=== PATIENT | female | born 1980 | race Caucasian/White ===

== ENCOUNTER 2022-06-12 12:06 | Inpatient (IN) | payer OTHER, SELFPAY ==
[2022-06-12] VITALS (7 sets, daily range): BP systolic 174–220; BP diastolic 107–133; PULSE 65–78; RESP 16–18; TEMP 36.4–36.6; O2SAT 96–100
--- NOTE | ~2022-06-12 | CT_ITS ---
EXAMINATION: CT abdomen pelvis w con DATE: 06/12/2022 13:23 INDICATION: Lower abdominal pain. Nausea. Constipation. TECHNIQUE: Computed tomography (CT) of the abdomen and pelvis was performed with 100 cc Omnipaque 350 intravenous contrast. The dose-length product was 397.59 mGy-cm. Automated exposure control and iter ative reconstruction technique were employed. COMPARISON: CT dated 05/04/2004. FINDINGS: There is a nonobstructing mass in the descending colon with dilation of the colon proximal to this. There is thickening of the distal transverse and proximal descending colon, suspicious for c olitis. Heart size is normal. Adrenal glands are normal. Kidneys are normal. No significant pleural o r pericardial effusion. Lung bases are unremarkable. There are multiple hypoenhancing masses of the liver involving both lobes, consistent with a metastat ic disease. The spleen, pancreas, adrenal glands and kidneys are unremarkable. No significant vascula r abnormality. No lymphadenopathy. There is mild inferior endplate compression deformity of T11, like ly chronic. No focal lytic or blastic lesions. There is an IUD in the uterus. No free air or free flu id. No abnormal pelvic masses or fluid collections. IMPRESSION: 1. Abnormal concentric thickening of the descending colon, suspicious for adenocarcinoma. The colon p roximal to this location is dilated containing fluid with segmental thickening of the distal transver se and proximal descending colon, suspicious for superimposed colitis. 2: Multiple hypoenhancing masses of the liver, largest measuring 7.2 x 5.1 cm and the left hepatic l obe, consistent with metastatic disease. Reviewed, dictated and finalized at location A. IMPRESSION: 1. Abnormal concentric thickening of the descending colon, suspicious for adeno carcinoma. The colon proximal to this location is dilated containing fluid with segmental thickening of the distal transverse and proximal descending colon, s uspicious for superimposed colitis. 2: Multiple hypoenhancing masses of the liver, largest measuring 7.2 x 5.1 cm and the left hepatic lobe, consistent with metastatic disease.
--- NOTE | ~2022-06-12 | XR_ITS ---
EXAMINATION: XR abdomen obstructive series DATE: 06/13/2022 07:52 INDICATION: Colon mass. Bowel obstruction. TECHNIQUE: Upright and supine views of the abdomen on 3 radiographs were obtained. COMPARISON: CT abdomen and pelvis 06/13/2022 FINDINGS: The splenic flexure of the colon is dilated with fold thickening. The small bowel is normal in caliber. There is an intrauterine device in expected position. No free intraperitoneal gas. IMPRESSION: 1. Dilated splenic flexure of the colon with fold thickening, consistent with colonic obstruction and colitis. Reviewed, dictated and finalized at location A. IMPRESSION: 1. Dilated splenic flexure of the colon with fold thickening, consistent with c olonic obstruction and colitis.
--- NOTE | ~2022-06-12 | US_ITS ---
EXAMINATION: US biopsy liver DATE: 06/14/2022 11:58 INDICATION: Liver mass. TECHNIQUE: The procedure including the risks, benefits, and alternatives was discussed with the patie nt. Risks discussed included bleeding and infection. The patient understood the risks and agreed to p roceed. The skin overlying the left hepatic lobe was prepped and draped in usual sterile fashion. An esthetic was administered with 1% lidocaine subcutaneously. An 18 gauge core biopsy needle was then used to obtain 3 core biopsy specimens under continuous sonographic guidance. The entry site was daivd dari and dressed. There were no immediate complications. FINDINGS: Ultrasound images demonstrate the needle in a 6 cm hyperechoic mass in left hepatic lobe. IMPRESSION: 1. Ultrasound-guided core needle biopsy of a mass in left hepatic lobe. Reviewed, dictated and finalized at location A.
--- NOTE | ~2022-06-12 | XR_ITS ---
EXAMINATION: XR chest port-a-cath/central INDICATION: Port-A-Cath insertion TECHNIQUE: Portable AP chest at 1801 hours COMPARISON: 10/17/2015 FINDINGS: A left internal jugular Port-A-Cath ends with its tip in the distal superior vena cava. No pleural effusion or pneumothorax. The cardiomediastinal silhouette is normal. IMPRESSION: 1. Left internal jugular Port-A-Cath ending with its tip in the distal superior vena cava. Reviewed, dictated and finalized at location A.
--- NOTE | ~2022-06-12 | XR_ITS ---
EXAMINATION: XR abdomen obstructive series DATE: 06/14/2022 07:54 INDICATION: Colon mass with obstruction. TECHNIQUE: Upright and supine views of the abdomen on 3 radiographs were obtained. COMPARISON: CT abdomen and pelvis 06/12/2022 FINDINGS: The transverse and descending colon are distended with fold thickening. The small bowel is normal in caliber. There is an intrauterine device in expected position. No free intraperitoneal gas. IMPRESSION: 1. Distended transverse and descending colon with fold thickening, consistent with colon obstruction and colitis. Reviewed, dictated and finalized at location A. IMPRESSION: 1. Distended transverse and descending colon with fold thickening, consistent w ith colon obstruction and colitis.
--- NOTE | ~2022-06-12 | XR_ITS ---
EXAMINATION: XR fl guide central line place INDICATION: Port-A-Cath insertion TECHNIQUE: A single intraoperative fluoroscopic image is submitted for review. Total fluoroscopic emmett e is 87 seconds. COMPARISON: None available FINDINGS: Fluoroscopic image demonstrates a left internal jugular Port-A-Cath with its tip coursing b eyond the left portion of the radiograph. Please refer to procedure note for full details. IMPRESSION: 1. Left internal jugular Port-A-Cath insertion. Please refer to procedure note for full details. Reviewed, dictated and finalized at location A.
--- NOTE | 2022-06-12 12:27 | ED.ABDPAIN ---
HPI - Abdominal Pain General Chief Complaint: Abdominal Pain Stated Complaint: ABD pain Time Seen by Provider: 06/12/22 12:11 Source: RN notes reviewed History of Present Illness HPI narrative: Patient presents emergency room from home for abdominal pain. Patient states she been having diffuse abdominal pain that began 6 days ago. States the pain is diffuse but worse in the lower abdomen described as cramping in nature. The pain does not radiate. States it is associate with nausea as well as constipation she denies any fevers or chills vomiting or any other symptoms states she has taken a stool softener with minimal relief Related Data Home Medications Medication Instructions Recorded Confirmed duloxetine 60 mg capsule,delayed 60 mg PO DAILY 07/12/19 06/30/20 release Allergies Allergy/AdvReac Type Severity Reaction Status Date / Time No Known Allergies Allergy Verified 06/12/22 12:49 Review of Systems Review of Systems: Gen.: Denies fevers or chills ENT: Denies congestion Respiratory: Denies shortness of breath or cough CV: Denies chest pain or palpitations GI: See HPI denies burning, urgency, frequency or hematuria Musculoskeletal: Denies back pain or muscle pain Neuro: Denies numbness, tingling, weakness or focal weakness Skin: Denies rash Except as documented, all other systems reviewed and negative [facility] Past Medical History Medical History Chondromalacia patellae, right knee Psoriatic arthritis Tear of lateral meniscus of right knee Family History Family History Grandparent Family history of osteoporosis Family history of lung cancer Father Family history of cardiovascular disease Other Diabetes mellitus Social History Social History Smoking status: Current every day smoker Alcohol intake: current Exam Narrative: APPEARANCE: No acute distress, nontoxic, resting in bed HEENT: Normocephalic, atraumatic, OMM RESPIRATORY: No respiratory distress, clear to auscultation bilaterally with no rhonchi wheezing or rales CARDIOVASCULAR: RRR s murmur ABDOMINAL: Soft nondistended diffusely tender to palpation no rebound or guarding MUSCULOSKELETAl: Moves all extremities. No clubbing, cyanosis or edema. NEURO: Awake and alert. Following commands, speech normal, no focal deficits SKIN:: Warm, dry. Normal Color PSYCHIATRIC: Normal affect/mood Course Course Emergency Course: Updated patient on results of CT scan with concerns of colon cancer with mets to the liver all questions answered. Discussed need for admission in agreement Called and discussed with LENARD Forbes for Dr. Nayak agrees with admission at this time Called and discussed with Dr Mcdonnell agrees with consult Called discussed with Dr. Griffin presentation work-up at this time he had asked to see patient possibly excepted to [facility] or [facility] or colorectal is at I called and discussed with [facility] is not taking any transfers at this time except for trauma is also called [facility] the patient is on the wait list to the emergency but no beds will be available for least 3 to 4 days I discussed this and updated Dr. Griffin is in agreement for the patient to stay at [facility] at this time and will Discussed with patient and family results of workup and diagnosis. Discussed need for admission. Patient and family understand and agree to current treatment plan Vital Signs Vital signs: Vital Signs Temperature 97.8 F 06/12/22 12:15 Pulse Rate 75 06/12/22 12:15 Respiratory Rate 16 06/12/22 12:15 Blood Pressure 186/133 H 06/12/22 12:15 Pulse Oximetry 99 06/12/22 12:15 Temperature 97.8 F 06/12/22 12:15 Pulse Rate 72 06/12/22 15:00 Respiratory Rate 18 06/12/22 15:00 Blood Pressure 220/133 H 06/12/22 15:00 Pulse Oximetry 98
[2022-06-12 12:28] LABS: Basophils Absolute Auto 0.1 K/mm3 (0.0-0.1); Basophils Percent Auto 0.9 % (0.2-1.2); Eosinophils Absolute Auto 0.4 K/mm3 (0-0.3); Hematocrit 44.6 % (37.0-47.0); Hemoglobin 14.4 g/dL (12.0-15.0); Immature Granulocyte Absolute 0.03 K/mm3 (0.00-0.031); Immature Granulocyte Percent A 0.3 % (0-0.5); Lymphocytes Absolute Auto 1.96 K/mm3 (0.9-3.2); Lymphocytes Percent Auto 18.3 % (18.3-44.2); Mean Corpuscular HGB Conc 32.3 g/dl (32-36); Mean Corpuscular Hemoglobin 29.3 pg (26-34); Mean Corpuscular Volume 90.7 fl (80-100); Mean Platelet Volume 8.7 fl (7.4-10.4); Monocytes Absolute Auto 0.8 K/mm3 (0.1-0.6); Monocytes Percent Auto 7.4 % (2.6-8.5); Neutrophils Absolute Auto 7.4 K/mm3 (1.3-6.7); Neutrophils Percent Auto 69.1 % (45.5-73.1); Platelet Count Result 313 k/mm3 (150-375); Red Blood Count 4.92 M/mm3 (4.2-5.4); Red Cell Distribution Width 12.4 % (11.5-14.5); White Blood Count 10.7 K/mm3 (4.5-10.0)
[2022-06-12] MEDS: ONDANSETRON INJ 4 MG/2 ML VIAL IV PUSH (12:39)
[2022-06-12] MEDS: KETOROLAC 30 MG/ML VIAL (*BKC) IV PUSH (12:39)
[2022-06-12] MEDS: SODIUM CHLORIDE 0.9% IV 1,000 ML 999 ML IV CONT (12:40)
[2022-06-12 12:45] LABS: Alanine Aminotransferase 29 U/L (6-35); Albumin Level 4.5 g/dL (3.5-5.1); Alkaline Phosphatase 132 U/L (38-126); Anion Gap 8 mmol/L (8-16); Aspartate Amino Transferase 50 U/L (14-36); Bilirubin,Total 0.6 mg/dL (0.2-1.3); Blood Urea Nitrogen 13 mg/dL (7-17); Calcium 9.1 mg/dL (8.4-10.2); Carbon Dioxide 33 mmol/L (22-30); Chloride 98 mmol/L (98-107); Estimated CRCL calculation 90 ml/min; Estimated Glomerular Filt Rate > 60; Glucose 116 mg/dL (65-110); Lipase 50 U/L (23-300); Potassium 4.2 mmol/L (3.4-5.0); Sodium 139 mmol/L (137-145)
[2022-06-12 13:11] LABS: Add Urine Microscopic? YES; Amorphous Sediment Urine Few; Appearance Urine Cloudy (Clear); Bacteria Urine Trace /hpf; Bilirubin Urine Negative (Negative); Blood Urine Negative (Negative); Color Urine Yellow (Yellow); Glucose Urine UA Negative (Negative); Ketones Urine Negative (Negative); Leukocyte Esterase Ur Negative LEU/UL (Negative); Mucus Urine Rare /lpf; Nitrate Urine Negative (Negative); Protein Urine Negative (Negative); RBC Urine 0-2 /hpf (0-2); Specific Grav Ur 1.016 (1.001-1.035); Squamous Epithelial Cell Urine Moderate /hpf (Few); Urobilinogen Urine Negative mg/dL (<2.0); WBC Urine 0-3 /hpf
[2022-06-12 15:20] LABS: SARS-CoV-2 RNA PCR Negative
--- NOTE | 2022-06-12 15:50 | ADMGEN ---
This patient, Bayron White, was admitted to 2 Medical Room 242-. Patient/family oriented to hospital policies and general routines including ID bracelet, bed and alarms, visiting hours, pain management, procedures, bathroom and other care routines, personal items, smoking policy, room service/diet, and visiting hours. Information on how to activate the Rapid Response Team has been discussed. Patient/Family are encouraged to report perceived risks to care and to ask questions if they do not understand what they are told or what they should do.
[2022-06-12] MEDS: SODIUM CHLORIDE 0.9% IV 1,000 ML 125 ML IV CONT (16:07)
[2022-06-12] MEDS: MORPHINE SULFATE (*CRX) 2 MG/ML INJ IV PUSH (18:34)
[2022-06-12] MEDS: amLODIPine BESYLATE 5 MG TABLET PO (22:04)
--- NOTE | 2022-06-12 22:30 | PM.IMHP ---
H&P: HPI History of Present Illness Date/Time: 06/12/22 22:30 Chief Complaint: Abdominal pain. Narrative: This is a very pleasant 41-year-old female with history of hypertension (no longer on antihypertensives) and psoriatic arthritis who presented to the emergency department via private vehicle from home for evaluation of abdominal pain. One morning early last week she awoke to a sharp and stabbing pain in her left shoulder and the following day she had similar pain in the upper abdomen. She initially thought that she was constipated and she took a Dulcolax and had a pretty decent sized bowel movement however the following day her abdomen was bloated and distended and she was having diffuse cramping discomfort that she attributed to gas pain. She took another Dulcolax without much benefit. She has also had nausea on almost a daily basis for the past 1 month however she attributes that to increasing stress and anxiety as she is currently going through a divorce. She has lost about 10 pounds in the last month as well. She came in today because she continues to have pretty consistent cramping pain throughout the lower abdomen. CT of the abdomen and pelvis showed abnormal thickening of the descending colon suspicious for adenocarcinoma with possible superimposed colitis, and multiple hypoenhancing masses the liver which are concerning for metastatic disease. Her paternal grandmother had colon cancer in her early 40s with no other known relatives with colon cancer. She has never had a colonoscopy. She has not noticed any dark stools or bright red blood in her stools. She has not had vomiting or diarrhea. No fever, chills, or sweats. Review of Systems Review of Systems: Twelve systems were reviewed. 10 pound weight loss recently as detailed above. She was previously on antihypertensives but has not taken them for many years. Blood pressures have been quite uncontrolled today. No chest pain, pleuritic pain, or shortness of breath. She denies syncope and presyncope. Except as documented, all other systems were reviewed and are negative. [facility] Past Medical History Medical History (Updated 06/12/22 @ 23:44 by Leidy Cordova PA-C) Chondromalacia patellae, right knee Hypertension Psoriatic arthritis Tear of lateral meniscus of right knee Surgical History Surgical History (Updated 06/12/22 @ 23:38 by Leidy Cordova PA-C) History of 2 sections History of adenoidectomy History of ovarian cystectomy Family History Family History (Updated 06/12/22 @ 23:39 by Leidy Cordova PA-C) Grandparent Colon cancer Father Heart disease Mother Cirrhosis Hypertension Other Diabetes mellitus Social History Social History (Updated 06/12/22 @ 23:41 by Leidy Cordova PA-C) Social History: The patient lives in [place]. She is currently going through divorce but she and her soon to be ex- are on good terms. Together they have a 7-year-old daughter and a 14-year-old son. 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 She smoked a pack of cigarettes per day for 15 years and quit about 7 years ago. She drinks 2 to 3 mixed drinks several days a week on average though over the last month she has been drinking wine almost each night. She smokes marijuana recreationally. She designates her spouse, Chintan White, or her mother Morgan Jimenez as her surrogate decision makers. Code status: Full code Meds Home Medications and Allergies Home Medications Medication Instructions Recorded Confirmed Type duloxetine 60 mg capsule,delayed 60 mg PO DAILY 07/12/19 06/12/22 History release Allergies Allergy/AdvReac Type Severity Reaction Status Date / Time No Known Allergies Allergy Verified 06/12/22 16:11 Vital Signs Vital Signs - 24 hr 06/12/22 12:15 06/12/22 12:50 06/12/22 15:00 Temperature 97.8 F Pulse Rate 75 69 72 Respiratory Rate 16 18 18 Blood Pressure 186/133 H 184/113 H 220/133 H
[2022-06-13] MEDS: ALPRAZolam (*CRX) 0.25 MG TABLET PO ×2 (00:14→19:17)
[2022-06-13 03:46] VITALS: BP 166/110; PULSE 75; RESP 20; TEMP 36; O2SAT 100
[2022-06-13 05:14] LABS: Basophils Absolute Auto 0.1 K/mm3 (0.0-0.1); Basophils Percent Auto 0.7 % (0.2-1.2); Eosinophils Absolute Auto 0.5 K/mm3 (0-0.3); Eosinophils Percent Auto 5.4 % (0-4.4); Hematocrit 41.5 % (37.0-47.0); Hemoglobin 13.1 g/dL (12.0-15.0); Immature Granulocyte Absolute 0.02 K/mm3 (0.00-0.031); Immature Granulocyte Percent A 0.2 % (0-0.5); Lymphocytes Absolute Auto 2.22 K/mm3 (0.9-3.2); Lymphocytes Percent Auto 25.9 % (18.3-44.2); Mean Corpuscular HGB Conc 31.6 g/dl (32-36); Mean Corpuscular Hemoglobin 28.6 pg (26-34); Mean Corpuscular Volume 90.6 fl (80-100); Monocytes Absolute Auto 0.6 K/mm3 (0.1-0.6); Monocytes Percent Auto 7.2 % (2.6-8.5); Neutrophils Absolute Auto 5.2 K/mm3 (1.3-6.7); Neutrophils Percent Auto 60.6 % (45.5-73.1); Platelet Count Result 273 k/mm3 (150-375); Red Blood Count 4.58 M/mm3 (4.2-5.4); Red Cell Distribution Width 12.4 % (11.5-14.5); White Blood Count 8.6 K/mm3 (4.5-10.0)
[2022-06-13 05:27] LABS: Alanine Aminotransferase 25 U/L (6-35); Albumin Level 3.9 g/dL (3.5-5.1); Alkaline Phosphatase 109 U/L (38-126); Anion Gap 7 mmol/L (8-16); Aspartate Amino Transferase 42 U/L (14-36); Bilirubin,Total 0.6 mg/dL (0.2-1.3); Blood Urea Nitrogen 8 mg/dL (7-17); Calcium 8.4 mg/dL (8.4-10.2); Carbon Dioxide 32 mmol/L (22-30); Chloride 103 mmol/L (98-107); Estimated CRCL calculation 91 ml/min; Estimated Glomerular Filt Rate > 60; Glucose 94 mg/dL (65-110); Potassium 3.9 mmol/L (3.4-5.0); Sodium 142 mmol/L (137-145)
--- NOTE | 2022-06-13 07:44 | WPDGICN ---
Assessment and Plan Assessment and plan (1) Abnormal CT scan: Code(s): R93.89 - Abnormal findings on diagnostic imaging of other specified body structures Status: Acute Assessment and Plan: Abnormal CT scan suggests mass of the left colon and possible liver metastases. Patient clinically has relatively benign abdomen this morning but history suspicious for partial bowel obstruction. Plan is for preparation attempted colonoscopy tomorrow after preparation today. CEA level will be obtained. Further recommendations after endoscopy. Surgery has been consulted further insight as well and eventual surgery. GI Consult Note Consult date/time: 06/13/22 07:44 Reason for consult: Abdominal pain, abnormal CT scan. HPI: Bayron White is a 41 year old female I am asked to see because of abnormal CT scan. Patient reports that she has had a recent tendency towards constipation. After exercising she developed left shoulder pain 1 week ago. Throughout the week this eventually developed into abdominal discomfort. She had abdominal discomfort and difficulty with bowel movements. No response with laxative. She presented to the emergency room yesterday where a CT scan suggested a left colon mass. Liver lesions were also described. Patient gives a family history of colon cancer in a grandparent. She denies any bleeding. Her weight has not changed dramatically recently. Past medical history is significant for psoriasis Review of Systems Review of Systems: Review of systems noncontributory. [facility] Past Medical History Medical History (Updated 06/13/22 @ 07:46 by Severino Mcdonnell MD) Chondromalacia patellae, right knee Hypertension Psoriatic arthritis Tear of lateral meniscus of right knee Surgical History Surgical History (Updated 06/12/22 @ 23:38 by Leidy Cordova PA-C) History of 2 sections History of adenoidectomy History of ovarian cystectomy Family History Family History (Updated 06/12/22 @ 23:39 by Leidy Cordova PA-C) Grandparent Colon cancer Father Heart disease Mother Cirrhosis Hypertension Other Diabetes mellitus Social History Social History (Updated 06/12/22 @ 23:41 by Leidy Cordova PA-C) Social History: The patient lives in [place]. She is currently going through divorce but she and her soon to be ex- are on good terms. Together they have a 7-year-old daughter and a 14-year-old son. 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 She smoked a pack of cigarettes per day for 15 years and quit about 7 years ago. She drinks 2 to 3 mixed drinks several days a week on average though over the last month she has been drinking wine almost each night. She smokes marijuana recreationally. She designates her spouse, Chintan White, or her mother Morgan Jimenez as her surrogate decision makers. Code status: Full code Meds Home Medications and Allergies Home Medications Medication Instructions Recorded Confirmed Type duloxetine 60 mg capsule,delayed 60 mg PO DAILY 07/12/19 06/12/22 History release Allergies Allergy/AdvReac Type Severity Reaction Status Date / Time No Known Allergies Allergy Verified 06/12/22 16:11 Vital Signs Vital Signs - 24 hr 06/12/22 12:15 06/12/22 12:50 06/12/22 15:00 Temperature 97.8 F Pulse Rate 75 69 72 Respiratory Rate 16 18 18 Blood Pressure 186/133 H 184/113 H 220/133 H Pulse Oximetry 99 96 98 Oxygen Delivery 06/12/22 15:40 06/12/22 15:48 06/12/22 18:14 Temperature Pulse Rate 78 Respiratory Rate 18 Blood Pressure 182/114 H 184/124 H Pulse Oximetry 99 Oxygen Delivery Room Air 06/12/22 18:19 06/12/22 19:47 06/13/22 03:46 Temperature 97.7 F 97.5 F L 96.8 F L Pulse Rate 65 70 75 Respiratory Rate 18 18 20 Blood Pressure 174/107 H 198/109 H 166/110 H Pulse Oximetry 99 100 100 Oxygen Delivery Exam Narrative: physical exam reveals patient to be alert. Vi
[2022-06-13] MEDS: LOSARTAN POTASSIUM 25 MG TABLET PO ×2 (09:02→14:19)
[2022-06-13] MEDS: DULoxetine HCL 60 MG CAPSULE.DR PO (09:02)
[2022-06-13] MEDS: ACETAMINOPHEN 325 MG TABLET 650 MG PO (09:07)
[2022-06-13] MEDS: hydrALAZINE HCL 20 MG/ML VIAL 10 MG IV PUSH (09:08)
--- NOTE | 2022-06-13 10:30 | PM.IMPN ---
Progress Note: A&P Assessment and Plan (1) Mass of colon: Code(s): K63.89 - Other specified diseases of intestine Status: Acute Assessment and Plan: CT scan shows concentric thickening of the descending colon suspicious for adenocarcinoma. Proximal colon dislocation is dilated with fluid suspicious for superimposed colitis Drs. Griffin, Kecia, and Rodney have been consulted for their opinion. Pain medications Could need a biopsy Colonoscopy probably for tomorrow (2) Liver masses: Code(s): R16.0 - Hepatomegaly, not elsewhere classified Status: Acute Assessment and Plan: Multiple masses noted in the liver with the largest measuring 7.2 x 5.1 centimeters concerning for metastatic disease. Consider biopsy Oncology has been consulted Pain medications on board (3) Hypertension: Code(s): I10 - Essential (primary) hypertension Status: Acute Assessment and Plan: Blood pressures have been uncontrolled since arrival to the ER, initially attributed to abdominal pain and anxiety BP continues to be elevated at 166/110 Continue losartan 25mg PO daily Continue to trend BP Adjust therapy as indicated (4) Colitis: Code(s): K52.9 - Noninfective gastroenteritis and colitis, unspecified Status: Acute Assessment and Plan: CT indicated possible colitis WBC slightly elevated at 10.7, however, trending down 8.6 Hold antibiotics for now Trend labs Adjust therapy as indicated Time Spent With Patient Time with patient: Greater than 35 minutes Subjective Date/time seen: 06/13/22 1030 Interval history: 06/13/22 103 Patient stated that she is feeling okay she is very emotional and she has been crying a lot. She is also complaining of cramping specially in the lower abdomen. She denies any chest pain, shortness a breath, vomiting, diarrhea. She did state that she is having constipation and nausea. I talked to her further about her illness. I explained to her that the CT did find some masses which is suspicious for cancer however it is not confirmed until she has a full workup. She is going to go through a bowel prep in go through a colonoscopy tomorrow. 06/12/22? 22:30 This is a very pleasant 41-year-old female with history of hypertension (no longer on antihypertensives) and psoriatic arthritis who presented to the emergency department via private vehicle from home for evaluation of abdominal pain. One morning early last week she awoke to a sharp and stabbing pain in her left shoulder and the following day she had similar pain in the upper abdomen. She initially thought that she was constipated and she took a Dulcolax and had a pretty decent sized bowel movement however the following day her abdomen was bloated and distended and she was having diffuse cramping discomfort that she attributed to gas pain. She took another Dulcolax without much benefit. She has also had nausea on almost a daily basis for the past 1 month however she attributes that to increasing stress and anxiety as she is currently going through a divorce. She has lost about 10 pounds in the last month as well. She came in today because she continues to have pretty consistent cramping pain throughout the lower abdomen. CT of the abdomen and pelvis showed abnormal thickening of the descending colon suspicious for adenocarcinoma with possible superimposed colitis, and multiple hypoenhancing masses the liver which are concerning for metastatic disease. Her paternal grandmother had colon cancer in her early 40s with no other known relatives with colon cancer.? She has never had a colonoscopy.? She has not noticed any dark stools or bright red blood in her stools. She has not had vomiting or diarrhea.? No fever, chills, or sweats. Review of Systems Review of Systems: All systems reviewed & are unremarkable except as noted in HPI and below Exam Con
--- NOTE | 2022-06-13 10:31 | PM.CNGS ---
Assessment and Plan Assessment and plan (1) Mass of colon: Code(s): K63.89 - Other specified diseases of intestine Status: Acute Assessment and Plan: CT suggesting a descending colon mass causing at least a partial obstruction with dilated proximal colon and multiple liver masses, which is concerning for metastatic colon cancer. She has been having obstructive symptoms for less almost a week. She continues to feel bloated and have a fair amount of abdominal pain and tenderness on exam. GI has been consulted and is planning to prep her today for a colonoscopy tomorrow. Discussed with the patient that if she continues to have obstructive symptoms, then we would need to consider proceeding with a diverting transverse colostomy to relieve the obstruction. Since there is evidence of distant metastatic spread, she would benefit from discussing chemotherapy options with Oncology, who has also been consulted. They have also asked our service to place a Port-A-Cath while she is hospitalized as well. Will see how she tolerates the bowel prep today and decide further plans for surgery depending on how she progresses. CEA pending this morning. Will continue to follow along with serial abdominal exams, imaging, and monitor closely. (2) Liver masses: Code(s): R16.0 - Hepatomegaly, not elsewhere classified Status: Acute Assessment and Plan: Oncology consulted. Could consider liver biopsy for primary diagnosis. (3) Large bowel obstruction: Code(s): K56.609 - Unspecified intestinal obstruction, unspecified as to partial versus complete obstruction Status: Acute Assessment and Plan: Still having obstructive symptoms and obstructive series this morning still shows dilatation of the splenic flexure. See plan above. 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 (6) Psoriatic arthritis: Code(s): L40.50 - Arthropathic psoriasis, unspecified Status: Acute Plan I have discussed the patient's case and plan of care with Dr. Griffin. Thank you for allowing us to see the patient in consultation and we will continue to follow along with you. History of Present Illness Consult details Consult date: 06/13/22 Reason for consult: other (Nearly obstructing colon mass) Requesting physician: Merlin Quintero DO Narrative: This is a 41-year-old woman with a history of hypertension and psoriatic arthritis on Cosentyx, who presented to the ER with complaints of abdominal pain and constipation. She reports having a sudden onset of shoulder pain and epigastric abdominal pain 6 days ago. She then began feeling bloated and thought she needed to have a BM. She tried taking Dulcolax. She did have a very small BM and still felt bloated. She developed lower abdominal cramping about 4 days ago. Her abdominal pain progressively worsened over the next few days. She still is not having significant bowel movements. No nausea or vomiting. She was passing some gas, but not as much as usual. Due to her persistent symptoms, she came into the ER for evaluation. CT scan of the abdomen and pelvis showed abnormal concentric thickening of the descending colon suspicious for adenocarcinoma, with dilation of the proximal colon with segmental thickening of the distal transverse and proximal descending colon. Also multiple hypoenhancing masses of the liver, largest measuring 7.2 x 5.1 cm of the left hepatic lobe consistent with metastatic disease. The patient was admitted to the hospitalist service. Our service was consulted by the ED physician for the nearly obstructing colon mass. She is now seen on the medical floor. GI has also been consulted and ordered bowel pre
[2022-06-13] MEDS: PEG (High)/E-LYTE SOLN 4,000 ML BTL 4000 ML PO (10:34)
[2022-06-13] MEDS: DICYCLOMINE HCL 10 MG CAPSULE 20 MG PO (10:34)
[2022-06-13 14:00] VITALS: BP 174/102; PULSE 70; RESP 16; TEMP 36.6; O2SAT 100
[2022-06-13] MEDS: hydroCHLOROthiazide 12.5 MG CAPSULE PO (14:20)
--- NOTE | 2022-06-13 18:59 | PDONCCN ---
HPI - Date of Consult Date/Time: 06/13/22 18:59 Requesting Physician: Lei Alvarez MD Primary Care Provider: Aviva Hall, SALES ORDER ADMINISTRATOR - Consult Narrative Reason for consult: Metastatic colon cancer Narrative: Bayron White is a 41 year old female female who has been in good health except history of hypertension and psoriatic arthritis came into the hospital with complain of abdominal cramping off and on for last 4-5 days duration. She has some nausea. He was also complaining of abdominal distention with bloating. She has lost 10 lb weight in last [address] abdomen and pelvis showed abnormal thickening of the descending colon along with multiple masses in the liver concerning for metastatic disease. Patient grandmother has history of colon cancer and female cancer diagnosed in early 40s. CEA came back elevated at 652. Denies any other new complaint. Review of Systems - Review of Systems All systems reviewed & are unremarkable except as noted in HPI and bel - Neurologic Reports system reviewed and no additional complaints, except as documented, Reports hearing normal, Denies headache(s), Denies focal weakness, Denies numbness, Denies tingling PMFSH Medical History: Medical History (Last Reviewed 06/13/22 @ 16:41 by ALEXI Tapia) Chondromalacia patellae, right knee Hypertension Plaque psoriasis Psoriatic arthritis Tear of lateral meniscus of right knee Surgical History: Surgical History (Last Reviewed 06/13/22 @ 16:41 by ALEXI Tapia) History of 2 sections History of adenoidectomy History of ovarian cystectomy Family History: Family History (Last Reviewed 06/13/22 @ 16:41 by ALEXI Tapia) Grandparent Colon cancer Father Heart disease Mother Cirrhosis Hypertension Other Diabetes mellitus Exam - Vital Signs Vital Signs - 24 hr 06/12/22 19:47 06/13/22 03:46 06/13/22 14:00 Temperature 36.4 C L 36.0 C L 36.6 C Pulse Rate 70 75 70 Respiratory Rate 18 20 16 Blood Pressure 198/109 H 166/110 H 174/102 H Pulse Oximetry 100 100 100 - Exam HEENT: EOMI, PERRLA, mucous membranes moist and pink Neck: supple. No: JVD Lungs: clear to auscultation, normal air movement Heart: no murmurs, gallops, or rubs, regular rhythm, regular rate Abdomen: abdomen soft, normal bowel sounds, tender Extremities: normal pulses Integumentary: no abnormalities Neurological: normal speech Psychological: mental status NL, mood NL - Lab Results Laboratory Last Values WBC 8.6 K/mm3 (4.5-10.0) 06/13/22 04:39 RBC 4.58 M/mm3 (4.2-5.4) 06/13/22 04:39 Hgb 13.1 g/dL (12.0-15.0) 06/13/22 04:39 Hct 41.5 % (37.0-47.0) 06/13/22 04:39 MCV 90.6 fl (80-100) 06/13/22 04:39 MCH 28.6 pg (26-34) 06/13/22 04:39 MCHC 31.6 g/dl (32-36) L 06/13/22 04:39 RDW 12.4 % (11.5-14.5) 06/13/22 04:39 Plt Count 273 k/mm3 (150-375) 06/13/22 04:39 MPV 9.0 fl (7.4-10.4) 06/13/22 04:39 Immature Gran % (Auto) 0.2 % (0-0.5) 06/13/22 04:39 Neut % (Auto) 60.6 % (45.5-73.1) 06/13/22 04:39 Lymph % (Auto) 25.9 % (18.3-44.2) 06/13/22 04:39 [place] % (Auto) 7.2 % (2.6-8.5) 06/13/22 04:39 Eos % (Auto) 5.4 % (0-4.4) H 06/13/22 04:39 Baso % (Auto) 0.7 % (0.2-1.2) 06/13/22 04:39 Lymph # (Auto) 2.22 K/mm3 (0.9-3.2) 06/13/22 04:39 [place] # (Auto) 0.6 K/mm3 (0.1-0.6) 06/13/22 04:39 Eos # (Auto) 0.5 K/mm3 (0-0.3) H 06/13/22 04:39 Baso # (Auto) 0.1 K/mm3 (0.0-0.1) 06/13/22 04:39 Abs Immat Gran (auto) 0.02 K/mm3 (0.00-0.031) 06/13/22 04:39 Absolute Neuts (auto) 5.2 K/mm3 (1.3-6.7) 06/13/22 04:39 Absolute Nucleated RBC 0.0 K/mm3 (0.0-0.012) 06/13/22 04:39 Nucleated RBC % 0.0 % (0.0-0.2) 06/13/22 04:39 Sodium 142 mmol/L (137-145) 06/13/22 04:39 Potassium 3.9 mmol/L (3.4-5.0) 06/13/22 04:39 Chlorid
[2022-06-13 19:43] VITALS: BP 168/111; PULSE 73; RESP 18; TEMP 36.2; O2SAT 99
[2022-06-13] MEDS: ONDANSETRON INJ 4 MG/2 ML VIAL IV PUSH (21:06)
[2022-06-14] VITALS (10 sets, daily range): BP systolic 124–186; BP diastolic 55–118; PULSE 65–93; RESP 10–20; TEMP 36.1–36.7; O2SAT 96–100; BMI 29.8
[2022-06-14] MEDS: MORPHINE SULFATE (*CRX) 2 MG/ML INJ IV PUSH ×2 (04:12→08:48)
[2022-06-14] MEDS: ONDANSETRON INJ 4 MG/2 ML VIAL IV PUSH ×2 (04:12→13:34)
[2022-06-14 05:44] LABS: Basophils Absolute Auto 0.1 K/mm3 (0.0-0.1); Basophils Percent Auto 0.6 % (0.2-1.2); Eosinophils Absolute Auto 0.2 K/mm3 (0-0.3); Eosinophils Percent Auto 2.4 % (0-4.4); Hematocrit 42.6 % (37.0-47.0); Hemoglobin 13.3 g/dL (12.0-15.0); Immature Granulocyte Absolute 0.03 K/mm3 (0.00-0.031); Immature Granulocyte Percent A 0.3 % (0-0.5); Lymphocytes Absolute Auto 1.53 K/mm3 (0.9-3.2); Lymphocytes Percent Auto 17.1 % (18.3-44.2); Mean Corpuscular HGB Conc 31.2 g/dl (32-36); Mean Corpuscular Hemoglobin 28.8 pg (26-34); Mean Corpuscular Volume 92.2 fl (80-100); Mean Platelet Volume 9.3 fl (7.4-10.4); Monocytes Absolute Auto 0.6 K/mm3 (0.1-0.6); Monocytes Percent Auto 7.1 % (2.6-8.5); Neutrophils Absolute Auto 6.5 K/mm3 (1.3-6.7); Neutrophils Percent Auto 72.5 % (45.5-73.1); Platelet Count Result 309 k/mm3 (150-375); Red Blood Count 4.62 M/mm3 (4.2-5.4); Red Cell Distribution Width 12.7 % (11.5-14.5); White Blood Count 8.9 K/mm3 (4.5-10.0)
[2022-06-14 05:59] LABS: Alanine Aminotransferase 25 U/L (6-35); Alkaline Phosphatase 109 U/L (38-126); Anion Gap 9 mmol/L (8-16); Aspartate Amino Transferase 46 U/L (14-36); Bilirubin,Total 0.7 mg/dL (0.2-1.3); Blood Urea Nitrogen 9 mg/dL (7-17); Calcium 8.7 mg/dL (8.4-10.2); Carbon Dioxide 31 mmol/L (22-30); Chloride 97 mmol/L (98-107); Estimated CRCL calculation 91 ml/min; Estimated Glomerular Filt Rate > 60; Glucose 101 mg/dL (65-110); Magnesium 2.2 mg/dL (1.6-2.3); Potassium 3.5 mmol/L (3.4-5.0); Sodium 137 mmol/L (137-145)
--- NOTE | 2022-06-14 08:10 | WPDGIPROGNO ---
Progress Note: A&P Assessment and Plan (1) Large bowel obstruction: Code(s): K56.609 - Unspecified intestinal obstruction, unspecified as to partial versus complete obstruction Status: Acute Assessment and Plan: Patient with apparent large partial large bowel obstruction. Having difficulty with colon prep. Plan is to discontinue preparation for colonoscopy. CT-guided liver biopsy will be performed to establish histology diagnosis. Surgery has been consulted for decompression surgery of the colon. Oncology will follow as well. CEA elevated suspicious for colon cancer with metastases to liver. (2) Abnormal CT scan: Code(s): R93.89 - Abnormal findings on diagnostic imaging of other specified body structures Status: Acute Assessment and Plan: Mass in colon suspicious for obstruction and also suspicious for cancer. Oncology will follow with us. (3) Liver masses: Code(s): R16.0 - Hepatomegaly, not elsewhere classified Status: Acute Assessment and Plan: CT-guided liver biopsy today. Subjective Date/time seen: 06/14/22 08:10 Patient alert comfortable and afebrile this morning. Had difficulty with bowel preparation for colonoscopy. She feels very full. Limited bowel movements with preparation. Unable to complete prep today. Review of Systems Review of Systems: Review of systems noncontributory. Exam Narrative: Physical exam reveals patient be alert. Vital signs stable. HEENT exam reveals no icterus. Lungs are clear. Heart without murmur. Abdomen is little bit more protuberant today. Bowel sounds are present soft no masses evident. Objective Data Vital Signs Vital Signs: Vital Signs - 24 hr 06/13/22 14:00 06/13/22 19:43 06/14/22 04:19 Temperature 97.8 F 97.1 F L 97.5 F L Pulse Rate 70 73 65 Respiratory Rate 16 18 18 Blood Pressure 174/102 H 168/111 H 186/110 H Pulse Oximetry 100 99 98 Intake/Output Intake/Output: Intake & Output 06/11/22 06/12/22 06/13/22 06/14/22 23:59 23:59 23:59 23:59 Intake Total 1000 1600 190 Output Total 1700 2 Balance 1000 -100 188 Meds/Results Medications: Active Medications Generic Name Dose Route Start Last Admin Trade Name Freq PRN Reason Stop Dose Admin Acetaminophen 650 mg 06/12/22 23:48 06/13/22 09:07 Acetaminophen 325 Mg Tablet PO 650 mg Q6H PRN Administration Mild Pain (1-3) or Fever Alprazolam 0.25 mg 06/12/22 23:45 06/13/22 19:17 Alprazolam (*Crx) 0.25 Mg Tablet PO 0.25 mg TID PRN Administration Anxiety Dicyclomine HCl 20 mg 06/13/22 09:47 06/13/22 10:34 Dicyclomine Hcl 10 Mg Capsule PO 20 mg Q6H PRN Administration Abdominal Cramping Duloxetine HCl 60 mg 06/13/22 09:00 06/13/22 09:02 Duloxetine Hcl 60 Mg Capsule.Dr PO 60 mg DAILY NANCY Administration Hydrochlorothiazide 12.5 mg 06/13/22 13:45 06/13/22 14:20 Hydrochlorothiazide 12.5 Mg Capsule PO 12.5 mg QAM NANCY Administration Lactated Ringer's 1,000 mls @ 150 mls/hr 06/13/22 14:10 Lr - Lactated Ringers Iv IV CONT .Q6H40M NANCY Cefazolin Sodium 2 gm in 50 mls @ 100 mls/hr 06/14/22 14:00 Ancef 2 Gm/D5w 50 Ml IVPB 06/14/22 14:29 ONCE ONE Losartan Potassium 100 mg 06/14/22 09:00 Losartan Potassium 100 Mg Tablet PO DAILY [facility] Morphine Sulfate 2 mg 06/12/22 23:48 06/14/22 04:12 Morphine Sulfate (*Crx) 2 Mg/Ml Inj IV PUSH 2 mg Q4H PRN Administration Pain Rated 7-10 Ondansetron HCl 4 mg 06/13/22 20:34 06/14/22 04:12 Ondansetron Inj 4 Mg/2 Ml Vial IV PUSH 4 mg Q6H PRN Administration Nausea And Vomiting Radiology Results: ITS Impressions Abdomen/Pelvis CT 06/12/22 13:30 IMPRESSION: 1. Abnormal concentric thickening of the descending colon, suspicious for adenocarcinoma. The colon proximal to this location is dilated containing fluid with segmental thickening of the distal transverse and proximal desc
[2022-06-14 08:34] LABS: INR 1.1; Prothrombin Time 13.7 Seconds (11.1-14.7)
[2022-06-14 08:35] LABS: Partial Thromboplastin Time 27.5 SECONDS (22.3-36.8)
[2022-06-14] MEDS: hydroCHLOROthiazide 12.5 MG CAPSULE PO (08:51)
[2022-06-14] MEDS: DICYCLOMINE HCL 10 MG CAPSULE 20 MG PO (08:51)
[2022-06-14] MEDS: LOSARTAN POTASSIUM 100 MG TABLET PO (08:52)
[2022-06-14] MEDS: DULoxetine HCL 60 MG CAPSULE.DR PO (08:52)
--- NOTE | 2022-06-14 09:00 | P.PNIM_ITS ---
Progress Note: A&P Assessment and Plan (1) Mass of colon: Code(s): K63.89 - Other specified diseases of intestine Status: Acute Assessment and Plan: * CT scan shows concentric thickening of the descending colon suspicious for adenocarcinoma. * Proximal colon dislocation is dilated with fluid suspicious for superimposed colitis * Drs. Griffin, Kecia, and Rodney have been consulted for their opinion. * Pain medications * Colonoscopy cancelled at this time * Could be causing the bowel obstruction (2) Liver masses: Code(s): R16.0 - Hepatomegaly, not elsewhere classified Status: Acute Assessment and Plan: * Multiple masses noted in the liver with the largest measuring 7.2 x 5.1 centimeters concerning for metastatic disease. * Biopsy ordered with port placement * Palliative therapy for outpatient * Oncology has been consulted * Pain medications on board (3) Hypertension: Code(s): I10 - Essential (primary) hypertension Status: Acute Assessment and Plan: * Blood pressures have been uncontrolled since arrival to the ER, initially attributed to abdominal pain and anxiety * BP continues to be elevated at 186/110 * Continue losartan 25mg PO daily, increase to 100mg Daily * consider adding additional therapy, however could be also related to anxiety * Continue to trend BP * Adjust therapy as indicated (4) Colitis: Code(s): K52.9 - Noninfective gastroenteritis and colitis, unspecified Status: Acute Assessment and Plan: * CT indicated possible colitis * WBC slightly elevated at 10.7, however, trending down 8.9 * Hold antibiotics for now * Trend labs * Adjust therapy as indicated (5) Large bowel obstruction: Code(s): K56.609 - Unspecified intestinal obstruction, unspecified as to partial versus complete obstruction Status: Acute Assessment and Plan: * Noted from colon mass * GS on the case * Abd obstructive series continues to show an obstruction * Could possibly need a bowel resection * Continue clear liquids after the procedures (6) Anxiety: Code(s): F41.9 - Anxiety disorder, unspecified Status: Acute Assessment and Plan: * Very heightened with new findings * Xanax, changed to ativan for further control * Continue to trend mood * adjust therapy as indicated Time Spent With Patient Time: and mom in the room. Talked to the patient about her blood pressure and importance of control. Time with patient: Greater than 35 minutes Subjective Date/time seen: 10/11/22 0900 Interval history: 06/14/22899 Patient is doing okay today. She does admit to some anxiety. She is post to go down today for her port and her biopsy. Abdominal x-ray continues to show obst ruction. Patient has not had any bowel movements even with the colon prep that she was given last night. She also does have some nausea she said she feels really full and her appetite is reduced. I did change her Xanax to Ativan for further anxiety control and I also change the morphine to Dilaudid as she stay in the morphine is not really cut the edge. She seems to be doing okay personality tate however I feel that she is just taking it 1 day at a time as she does not know how to feel at this time. She denies any chest pain, shortness a breath, weakness, or fatigue. 06/13/22 1030
--- NOTE | 2022-06-14 09:00 | PM.IMPN ---
Progress Note: A&P Assessment and Plan (1) Mass of colon: Code(s): K63.89 - Other specified diseases of intestine Status: Acute Assessment and Plan: CT scan shows concentric thickening of the descending colon suspicious for adenocarcinoma. Proximal colon dislocation is dilated with fluid suspicious for superimposed colitis Drs. Griffin, Kecia, and Rodney have been consulted for their opinion. Pain medications Colonoscopy cancelled at this time Could be causing the bowel obstruction (2) Liver masses: Code(s): R16.0 - Hepatomegaly, not elsewhere classified Status: Acute Assessment and Plan: Multiple masses noted in the liver with the largest measuring 7.2 x 5.1 centimeters concerning for metastatic disease. Biopsy ordered with port placement Palliative therapy for outpatient Oncology has been consulted Pain medications on board (3) Hypertension: Code(s): I10 - Essential (primary) hypertension Status: Acute Assessment and Plan: Blood pressures have been uncontrolled since arrival to the ER, initially attributed to abdominal pain and anxiety BP continues to be elevated at 186/110 Continue losartan 25mg PO daily, increase to 100mg Daily consider adding additional therapy, however could be also related to anxiety Continue to trend BP Adjust therapy as indicated (4) Colitis: Code(s): K52.9 - Noninfective gastroenteritis and colitis, unspecified Status: Acute Assessment and Plan: CT indicated possible colitis WBC slightly elevated at 10.7, however, trending down 8.9 Hold antibiotics for now Trend labs Adjust therapy as indicated (5) Large bowel obstruction: Code(s): K56.609 - Unspecified intestinal obstruction, unspecified as to partial versus complete obstruction Status: Acute Assessment and Plan: Noted from colon mass GS on the case Abd obstructive series continues to show an obstruction Could possibly need a bowel resection Continue clear liquids after the procedures (6) Anxiety: Code(s): F41.9 - Anxiety disorder, unspecified Status: Acute Assessment and Plan: Very heightened with new findings Xanax, changed to ativan for further control Continue to trend mood adjust therapy as indicated Time Spent With Patient Time: and mom in the room. Talked to the patient about her blood pressure and importance of control. Time with patient: Greater than 35 minutes Subjective Date/time seen: 06/14/22899 Interval history: 06/14/22899 Patient is doing okay today. She does admit to some anxiety. She is post to go down today for her port and her biopsy. Abdominal x-ray continues to show obstruction. Patient has not had any bowel movements even with the colon prep that she was given last night. She also does have some nausea she said she feels really full and her appetite is reduced. I did change her Xanax to Ativan for further anxiety control and I also change the morphine to Dilaudid as she stay in the morphine is not really cut the edge. She seems to be doing okay personality tate however I feel that she is just taking it 1 day at a time as she does not know how to feel at this time. She denies any chest pain, shortness a breath, weakness, or fatigue. 06/13/22 1030 Patient stated that she is feeling okay she is very emotional and she has been crying a lot. She is also complaining of cramping specially in the lower abdomen. She denies any chest pain, shortness a breath, vomiting, diarrhea. She did state that she is having constipation and nausea. I talked to her further about her illness. I explained to her that the CT did find some masses which is suspicious for cancer however it is not confirmed until she has a full workup. She is going to go through a bowel prep in go through a colonoscopy
[2022-06-14] MEDS: LORazepam (*CRX) 0.5 MG TABLET PO (10:43)
--- NOTE | 2022-06-14 11:10 | PM.PNGS ---
Progress Note: A&P Assessment and Plan (1) Mass of colon: Code(s): K63.89 - Other specified diseases of intestine Status: Acute Assessment and Plan: Patient having more bloating and abdominal pain after trying the bowel prep yesterday. She had one episode of vomiting and is still not passing any gas or having any significant bowel movements. Colonoscopy was cancelled for today. I discussed the patient's case with Dr. Griffin as the patient is already on the schedule for port placement today. He will collaborate with Oncology today to decide on her treatment plan. (2) Large bowel obstruction: Code(s): K56.609 - Unspecified intestinal obstruction, unspecified as to partial versus complete obstruction Status: Acute Assessment and Plan: Continues to have signs of obstruction. Not passing gas or having bowel movements following the bowel prep. Obstructive series today showed distention of the transverse and descending colon, suggesting colon obstruction. Keep her NPO with IV fluids for now. May need to consider NG tube if she has more vomiting. Again discussed with the patient that she may require a diverting colostomy if she is completely obstructed, although we were trying to avoid this since it would also delay chemotherapy. (3) Liver masses: Code(s): R16.0 - Hepatomegaly, not elsewhere classified Status: Acute Assessment and Plan: Oncology following. 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 Griffin. Subjective Subjective Date/Time Seen: 06/14/22 11:10 Patient reports: still having pain, no flatus and no bowel movement Interval history: Patient seen and examined. She reports taking in about 70% of the bowel prep yesterday. She continued to feel more bloated throughout the day and her abdominal cramping has worsened. She reports her pain is now at a 9/10 on a pain scale. She did have some nausea and 1 episode of vomiting, which she reports was primarily the bowel prep and some bile. She has not been passing any gas and did not have any bowel movements. The nurse reports she had a marble-sized stool, but no significant bowel movements. Colonoscopy was canceled this morning. Review of Systems Review of Systems: All systems reviewed & are unremarkable except as noted in HPI and below Exam Const: General: no acute distress and awake Orientation/consciousness: patient oriented x3 GI: Inspection: distended and other (seems slightly more distended today) GI Palp: Yes Soft to palpation, Yes Tenderness to palpation present (GI) (generalized tenderness), No Guarding due to palpation present (GI) and No Rebound tenderness present Percussion: Yes tympanic to percussion Auscultation: Hypoactive bowel sounds present Objective Data Vital Signs Vital Signs: Vital Signs - 24 hr 06/13/22 14:00 06/13/22 19:43 06/14/22 04:19 Temperature 97.8 F 97.1 F L 97.5 F L Pulse Rate 70 73 65 Respiratory Rate 16 18 18 Blood Pressure 174/102 H 168/111 H 186/110 H Pulse Oximetry 100 99 98 Intake/Output Intake/Output: Intake & Output 06/11/22 06/12/22 06/13/22 06/14/22 23:59 23:59 23:59 23:59 Intake Total 1000 1600 190 Output Total 1700 2 Balance 1000 -100 188 Meds/Results Medications: Active Medications Generic Name Dose Route Start Last Admin Trade Name Freq PRN Reason Stop Dose Admin Acetaminophen 650 mg 06/12/22 23:48 06/13/22 09:07 Acetaminophen 325 Mg Tablet PO 650 mg Q6H PRN Administration Mild Pain (1-3
--- NOTE | 2022-06-14 12:53 | PCNSR ---
On 06/14/22, the student, Humza Cummings, provided care and completed [employer] documentation on this patient. I have reviewed the student's documentation and agree with the findings.
[2022-06-14] MEDS: HYDROmorphone HCL INJ (*CRX) 1 MG/ML SYR IV PUSH (13:34)
--- NOTE | 2022-06-14 14:32 | WPDANESEPPF ---
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 Patient Data Age: 41 Gender: F Height: 1.6 m Weight: 76.4 kg Last Vital Signs Temp 36.4 C L 06/14/22 04:19 Pulse 77 06/14/22 11:57 Resp 18 06/14/22 11:57 BP 158/118 H 06/14/22 11:57 Pulse Ox 99 06/14/22 11:57 O2 Del Method Room Air 06/12/22 18:14 Allergies Allergy/AdvReac Type Severity Reaction Status Date / Time No Known Allergies Allergy Verified 06/14/22 14:24 Home Medications Medication Instructions Recorded Confirmed Type duloxetine 60 mg capsule,delayed 60 mg PO DAILY 07/12/19 06/12/22 History release Laboratory Tests 06/14/22 06/14/22 06/14/22 05:02 05:02 08:09 WBC 8.9 K/mm3 K/mm3 (4.5-10.0) RBC 4.62 M/mm3 M/mm3 (4.2-5.4) Hgb 13.3 g/dL g/dL (12.0-15.0) Hct 42.6 % % (37.0-47.0) MCV 92.2 fl fl (80-100) MCH 28.8 pg pg (26-34) MCHC 31.2 g/dl L g/dl (32-36) RDW 12.7 % % (11.5-14.5) Plt Count 309 k/mm3 k/mm3 (150-375) MPV 9.3 fl fl (7.4-10.4) Immature Gran % (Auto) 0.3 % % (0-0.5) Neut % (Auto) 72.5 % % (45.5-73.1) Lymph % (Auto) 17.1 % L % (18.3-44.2) [place] % (Auto) 7.1 % % (2.6-8.5) Eos % (Auto) 2.4 % % (0-4.4) Baso % (Auto) 0.6 % % (0.2-1.2) Lymph # (Auto) 1.53 K/mm3 K/mm3 (0.9-3.2) [place] # (Auto) 0.6 K/mm3 K/mm3 (0.1-0.6) Eos # (Auto) 0.2 K/mm3 K/mm3 (0-0.3) Baso # (Auto) 0.1 K/mm3 K/mm3 (0.0-0.1) Abs Immat Gran (auto) 0.03 K/mm3 K/mm3 (0.00-0.031) Absolute Neuts (auto) 6.5 K/mm3 K/mm3 (1.3-6.7) Absolute Nucleated RBC 0.0 K/mm3 K/mm3 (0.0-0.012) Nucleated RBC % 0.0 % % (0.0-0.2) PT 13.7 Seconds Seconds (11.1-14.7) INR 1.1 APTT 27.5 SECONDS SECONDS (22.3-36.8) Sodium 137 mmol/L mmol/L (137-145) Potassium 3.5 mmol/L mmol/L (3.4-5.0) Chloride 97 mmol/L L mmol/L (98-107) Carbon Dioxide 31 mmol/L H mmol/L (22-30) Anion Gap 9 mmol/L mmol/L (8-16) BUN 9 mg/dL mg/dL (7-17) Creatinine 0.70 mg/dL mg/dL (0.7-1.0) Estim Creat Clear Calc 91 ml/min ml/min Estimated GFR > 60 (59 - ) Glucose 101 mg/dL mg/dL (65-110) Calcium 8.7 mg/dL mg/dL (8.4-10.2) Magnesium 2.2 mg/dL mg/dL (1.6-2.3) Total Bilirubin 0.7 mg/dL mg/dL (0.2-1.3) AST 46 U/L H U/L (14-36) ALT 25 U/L U/L (6-35) Alkaline Phosphatase 109 U/L U/L (38-126) Total Protein 7.0 g/dL g/dL (6.3-8.2) Albumin 4.0 g/dL g/dL (3.5-5.1) Blood Type Antibody Screen 06/14/22 13:26 WBC RBC Hgb Hct MCV MCH MCHC RDW Plt Count MPV Immature Gran % (Auto) Neut % (Auto) Lymph % (Auto) [place] % (Auto) Eos % (Auto) Baso % (Auto) Lymph # (Auto) [place] # (Auto) Eos # (Auto) Baso # (Auto) Abs Immat Gran (auto) Absolute Neuts (auto) Absolute Nucleated RBC Nucleated RBC % PT INR APTT Sodium Potassium Chloride Carbon Dioxide Anion Gap BUN Creatinine Estim Creat Clear Calc Estimated GFR Glucose Calcium Magnesium Total Bilirubin
--- NOTE | 2022-06-14 14:50 | WPDHPUPDATE1 ---
History and Physical Update Update Date/Time: 06/14/22 14:50 History and Physical has been reviewed, including an updated exam of the patient. There are NO changes in the patient's condition. Risks, benefits, and alternatives have been discussed and questions answered. Patient agrees to proceed with procedure.
[2022-06-14] MEDS: ceFAZolin 2 GM/D5W 50 ML 2 GM/50 ML BAG IVPB (15:25)
[2022-06-14] MEDS: metroNIDAZOLE 500 MG/ISO 100ML 500 MG/100 ML BAG 100 MG IVPB (15:35)
[2022-06-14] MEDS: HEPARIN SODIUM 5,000 UNITS/ML VIAL 5000 UNITS IRRIGATION (16:04)
[2022-06-14] MEDS: HEPARIN SODIUM, PORCINE 10,000 UNITS/10 ML VIAL 2000 UNITS IRRIGATION (16:04)
[2022-06-14] MEDS: LIDO 2%/EPINEPHRINE 1:100,000 20 ML VIAL 10 ML INFILTRATE (16:06)
[2022-06-14] MEDS: LACTATED RINGERS 1,000 ML 30 ML IV CONT ×2 (17:38)
--- NOTE | 2022-06-14 17:43 | W.PM.PROC2 ---
Procedure Note - Detailed Date of Procedure 06/14/22 Pre-op Diagnosis Colon mass, Colonic obstruction Post-op Diagnosis Same Procedure Performed 1. Right internal jugular tunneled Port-A-Cath placement using ultrasound and fluoroscopic guidance 2. Open loop transverse colostomy Surgeon José Miguel Griffin, DO Indications This is a 41 year old woman who presented to the emergency department 2 days ago with abdominal pain, bloating, and difficulty with bowel movements. She denies any other recent significant symptoms leading up to this. A CT in the emergency department showed evidence of a colonic mass with dilated proximal bowel and multiple liver metastases concerning for colon cancer with metastases. She was not any significant bowel function and bowel prep was attempted for possible colonoscopy however patient was not tolerating bowel prep in still was very bloated and nauseated. Discussions were made with the patient about risks of bowel perforation if she is completely obstructed and concerns about ability to tolerate enteral nutrition when she is completely obstructed. Decision was then made to proceed with loop transverse colostomy. She also is in need of port placement to initiate chemotherapy as soon as possible. Decision was made to proceed with Port-A-Cath placement as well. Findings The Port-A-Cath placement was performed 1st. I attempted ultrasound-guided access on the right side and was able to identify the right internal jugular vein. This appeared as a compressible vessel just lateral to the pulsatile carotid artery. Once this vessel was accessed there did appear to be very high pressure is coming from this and it appeared pulsatile. I then withdrew the needle and readvanced under ultrasound guidance and what appeared to be the internal jugular vein but again there did appear to be pulsatile blood. I attempted advancement of the guidewire to see if this the internal jugular vein, but the guidewire was not advancing easily. I then withdrew the guidewire and applied pressure for 5 minutes. I then moved over to the left side to perform Port-A-Cath placement via a left internal jugular vein approach. Again ultrasound guidance was used to identify the left internal jugular vein. This appeared to be a compressible vessel just lateral to the pulsatile carotid artery. An 18 gauge introducer needle was advanced under ultrasound guidance and dark nonpulsatile blood was aspirated. The 0.035 in guidewire was advanced over the guidewire and fluoroscopy was then used to guide advancement of the guidewire followed by the dilator and sheath. The final fluoroscopic images demonstrated the catheter tip in the distal SVC and no kinks along its path. I then moved my attention to creating the transverse colostomy. A vertical midline incision was made about 2 in superior to the umbilicus. The abdomen was entered and the transverse colon was identified. This was carefully delivered through the incision and the omentum was carefully taken down around this dissection to allow for ostomy creation. No other significant abnormalities were noted through this small incision, but I could not explore the entire abdomen through this. The loop transverse colostomy was created and there was some gas and scan stool that was coming from the ostomy right away. Description of Procedure Procedure as well as risks, benefits, and alternatives were discussed with patient. Written consent was obtained and placed in chart prior to procedure. Patient was brought back to surgical suite. Was placed supine on operating table. Time-out was done confirm patient procedure. The patient was then intubated by the Anesthesia Department. The chest and neck area was prepped and draped in sterile fashion using chlorhexidine prep. Patient was placed in Trendelenburg position. SonoSite ultrasound was used to identify the right internal jugular vein. This was visualized as a compressible vess
[2022-06-14] MEDS: HYDROmorphone HCL INJ (*CRX) 1 MG/ML SYR 0.5 MG IV PUSH ×3 (18:08→19:24)
[2022-06-14] MEDS: LACTATED RINGERS 1,000 ML 100 ML IV CONT (19:22)
[2022-06-15 04:08] VITALS: BP 155/95; PULSE 72; RESP 18; TEMP 36.2; O2SAT 100
[2022-06-15] MEDS: HYDROmorphone HCL INJ (*CRX) 1 MG/ML SYR IV PUSH ×3 (05:27→20:27)
[2022-06-15 05:28] LABS: Basophils Absolute Auto 0.1 K/mm3 (0.0-0.1); Basophils Percent Auto 0.5 % (0.2-1.2); Eosinophils Absolute Auto 0.1 K/mm3 (0-0.3); Eosinophils Percent Auto 0.9 % (0-4.4); Hematocrit 35.8 % (37.0-47.0); Hemoglobin 11.3 g/dL (12.0-15.0); Immature Granulocyte Absolute 0.03 K/mm3 (0.00-0.031); Immature Granulocyte Percent A 0.3 % (0-0.5); Lymphocytes Absolute Auto 1.51 K/mm3 (0.9-3.2); Lymphocytes Percent Auto 15.7 % (18.3-44.2); Mean Corpuscular HGB Conc 31.6 g/dl (32-36); Mean Corpuscular Hemoglobin 29.3 pg (26-34); Mean Corpuscular Volume 92.7 fl (80-100); Mean Platelet Volume 9.3 fl (7.4-10.4); Monocytes Absolute Auto 0.8 K/mm3 (0.1-0.6); Monocytes Percent Auto 8.1 % (2.6-8.5); Neutrophils Absolute Auto 7.2 K/mm3 (1.3-6.7); Neutrophils Percent Auto 74.5 % (45.5-73.1); Platelet Count Result 269 k/mm3 (150-375); Red Blood Count 3.86 M/mm3 (4.2-5.4); Red Cell Distribution Width 12.8 % (11.5-14.5); White Blood Count 9.6 K/mm3 (4.5-10.0)
[2022-06-15 05:43] LABS: Alanine Aminotransferase 25 U/L (6-35); Albumin Level 3.5 g/dL (3.5-5.1); Alkaline Phosphatase 93 U/L (38-126); Anion Gap 5 mmol/L (8-16); Aspartate Amino Transferase 62 U/L (14-36); Bilirubin,Total 0.6 mg/dL (0.2-1.3); Blood Urea Nitrogen 12 mg/dL (7-17); Calcium 8.5 mg/dL (8.4-10.2); Carbon Dioxide 32 mmol/L (22-30); Chloride 99 mmol/L (98-107); Estimated CRCL calculation 79 ml/min; Estimated Glomerular Filt Rate > 60; Glucose 93 mg/dL (65-110); Magnesium 2.1 mg/dL (1.6-2.3); Potassium 3.7 mmol/L (3.4-5.0); Sodium 136 mmol/L (137-145)
--- NOTE | 2022-06-15 07:36 | WPDGIPROGNO ---
Progress Note: A&P Assessment and Plan (1) Large bowel obstruction: Code(s): K56.609 - Unspecified intestinal obstruction, unspecified as to partial versus complete obstruction Status: Acute Assessment and Plan: Bowel obstruction relieved after decompression colostomy performed yesterday. Appears to have a colon carcinoma with liver metastases. Final histology pending. Oncology anticipate starting chemotherapy soon after some healing from ostomy formation. (2) Liver masses: Code(s): R16.0 - Hepatomegaly, not elsewhere classified Status: Acute (3) Mass of colon: Code(s): K63.89 - Other specified diseases of intestine Status: Acute Subjective Date/time seen: 06/15/22 07:36 Patient alert much more comfortable this morning. Had transverse loop colostomy performed yesterday to decompress the colon. Review of Systems Review of Systems: Review of systems noncontributory. Exam Narrative: Patient alert comfortable this morning she is anicteric. Lungs clear. Heart without murmur. Abdomen much softer. Colostomy with associated stoma appliance in the upper abdomen. Appears to be functioning well with large amount of stool. Objective Data Vital Signs Vital Signs: Vital Signs - 24 hr 06/14/22 11:57 06/14/22 11:57 06/14/22 15:08 Temperature 98.1 F Pulse Rate 76 77 75 Respiratory Rate 18 18 16 Blood Pressure 174/112 H 158/118 H 153/97 H Pulse Oximetry 99 99 98 Oxygen Delivery Room Air Oxygen Flow Rate 06/14/22 17:38 06/14/22 17:50 06/14/22 18:05 Temperature 96.9 F L Pulse Rate 78 76 93 Respiratory Rate 10 L 16 15 Blood Pressure 124/55 L 155/87 H 147/86 H Pulse Oximetry 99 100 96 Oxygen Delivery Simple Face Mask Simple Face Mask Room Air Oxygen Flow Rate 8 8 06/14/22 18:20 06/14/22 18:40 06/14/22 18:55 Temperature 97.0 F L 97.2 F L Pulse Rate 83 84 80 Respiratory Rate 20 16 16 Blood Pressure 142/87 H 144/82 H 146/90 H Pulse Oximetry 98 100 100 Oxygen Delivery Room Air Oxygen Flow Rate 06/14/22 19:24 06/14/22 20:00 06/15/22 04:08 Temperature 97.1 F L 97.1 F L Pulse Rate 75 72 Respiratory Rate 18 18 Blood Pressure 131/92 H 155/95 H Pulse Oximetry 96 100 Oxygen Delivery Room Air Oxygen Flow Rate Intake/Output Intake/Output: Intake & Output 06/12/22 06/13/22 06/14/22 06/15/22 23:59 23:59 23:59 23:59 Intake Total 1000 1600 540 290 Output Total 1700 754 250 Balance 1000 -100 -214 40 Meds/Results Medications: Active Medications Generic Name Dose Route Start Last Admin Trade Name Freq PRN Reason Stop Dose Admin Acetaminophen 650 mg 06/12/22 23:48 06/13/22 09:07 Acetaminophen 325 Mg Tablet PO 650 mg Q6H PRN Administration Mild Pain (1-3) or Fever Duloxetine HCl 60 mg 06/13/22 09:00 06/14/22 08:52 Duloxetine Hcl 60 Mg Capsule.Dr PO 60 mg DAILY NANCY Administration Enoxaparin Sodium 40 mg 06/15/22 09:00 Enoxaparin 40 Mg/0.4 Ml Syringe SUB-Q DAILY REPLACED BY [facility] Hydrochlorothiazide 12.5 mg 06/13/22 13:45 06/14/22 08:51 Hydrochlorothiazide 12.5 Mg Capsule PO 12.5 mg QAM NANCY Administration Hydromorphone HCl 0.5 mg 06/14/22 18:29 06/14/22 19:24 Hydromorphone Hcl Inj (*Crx) 1 Mg/Ml Syr IV PUSH 0.5 mg Q2H PRN Administration Pain Rated 4-6 Hydromorphone HCl 1 mg 06/14/22 18:29 06/15/22 05:27 Hydromorphone Hcl Inj (*Crx) 1 Mg/Ml Syr IV PUSH 1 mg Q2H PRN Administration Pain Rated 7-10 Lorazepam 0.5 mg 06/14/22 09:04 06/14/22 10:43 Lorazepam (*Crx) 0.5 Mg Tablet PO 0.5 mg Q6H PRN Administration Anxiety Losartan Potassium 100 mg 06/14/22 09:00 06/14/22 08:52 Losartan Potassium 100 Mg Tablet PO 100 mg DAILY NANCY Administration Ondansetron HCl 4 mg 06/13/22 20:34 06/14/22 13:34 Ondansetron Inj 4 Mg/2 Ml Vial IV PUSH 4 mg Q6H PRN Administration Nausea And Vomiting Ondansetron HCl 4 mg 06/14/22 14:36
--- NOTE | 2022-06-15 09:04 | P.PNAN_ITS ---
Anes - Prog Note Post-Op Date/Time: 06/15/22 09:04 Cardiovascular status: normal Respiratory status: normal Airway patency: baseline Mental status: baseline Post-Op hydration status: normal Vital Signs: Last Vital Signs Temp 97.1 F L 06/15/22 04:08 Pulse 72 06/15/22 04:08 Resp 18 06/15/22 04:08 BP 155/95 H 06/15/22 04:08 Pulse Ox 100 06/15/22 04:08 O2 Del Method Room Air 06/14/22 20:00 O2 Flow Rate 8 06/14/22 17:50 Pain Score (VAS): 3 I/O: Intake & Output 06/14/22 06/15/22 06/15/22 23:59 07:59 15:59 Intake Total 200 290 Output Total 752 250 Balance -552 40 Laboratory Tests 06/15/22 04:45 06/15/22 04:45 06/14/22 06/15/22 06/15/22 13:26 04:45 04:45 WBC 9.6 RBC 3.86 L Hgb 11.3 L Hct 35.8 L MCV 92.7 MCH 29.3 MCHC 31.6 L RDW 12.8 Plt Count 269 MPV 9.3 Immature Gran % (Auto) 0.3 Neut % (Auto) 74.5 H Lymph % (Auto) 15.7 L [place] % (Auto) 8.1 Eos % (Auto) 0.9 Baso % (Auto) 0.5 Lymph # (Auto) 1.51 [place] # (Auto) 0.8 H Eos # (Auto) 0.1 Baso # (Auto) 0.1 Abs Immat Gran (auto) 0.03 Absolute Neuts (auto) 7.2 H Absolute Nucleated RBC 0.0 Nucleated RBC % 0.0 Sodium 136 L Potassium 3.7 Chloride 99 Carbon Dioxide 32 H Anion Gap 5 L BUN 12 Creatinine 0.80 Estim Creat Clear Calc 79 Estimated GFR > 60 Glucose 93 Calcium 8.5 Magnesium 2.1 Total Bilirubin 0.6 AST 62 H ALT 25 Alkaline Phosphatase 93 Total Protein 7.0 Albumin 3.5 Blood Type A Positive Antibody Screen Negative Post-procedural complaints: none Patient Feedback: Patient satisfied with anesthetic care.
[2022-06-15] MEDS: ENOXAPARIN 40 MG/0.4 ML SYRINGE SUB-Q (09:05)
[2022-06-15] MEDS: hydroCHLOROthiazide 12.5 MG CAPSULE PO (09:06)
[2022-06-15] MEDS: LOSARTAN POTASSIUM 100 MG TABLET PO (09:06)
[2022-06-15] MEDS: DULoxetine HCL 60 MG CAPSULE.DR PO (09:06)
--- NOTE | 2022-06-15 10:44 | PM.PNGS ---
Progress Note: A&P Assessment and Plan (1) Mass of colon: Code(s): K63.89 - Other specified diseases of intestine Status: Acute Assessment and Plan: S/p diverting loop colostomy on 06/14. Ostomy functioning well. Will advance to full liquids. Wound care providing ostomy education today Encouraged increasing activity and ambulating in the halls (2) Large bowel obstruction: Code(s): K56.609 - Unspecified intestinal obstruction, unspecified as to partial versus complete obstruction Status: Acute Assessment and Plan: Now with diverting colostomy, which is functioning well. Advance to full liquids. (3) Liver masses: Code(s): R16.0 - Hepatomegaly, not elsewhere classified Status: Acute Assessment and Plan: Liver biopsy on 06/14, pathology pending. This is likely metastatic colon cancer. CEA 652. Port placed yesterday during surgery. Oncology plans to start chemotherapy after she has healed from surgery. 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 Griffin. Subjective Subjective Date/Time Seen: 06/15/22 10:44 Patient reports: feels better, pain is less and afebrile Interval history: Patient seen and examined. Reports feeling much better today. She reports her abdominal cramping has subsided and now her only abdominal pain is located at the ostomy. No nausea. Bloating continues to improve. She is reportedly empties her bag with stool 3 times overnight. Wound care has already come by to see the patient and give her Education. Review of Systems Review of Systems: All systems reviewed & are unremarkable except as noted in HPI and below Exam Const: General: comfortable, no acute distress and awake Orientation/consciousness: patient oriented x3 Resp: Effort & Inspection: no respiratory distress Auscultation: clear to auscultation bilaterally Cardio: Rate: regular rate Rhythm: regular rhythm GI: Inspection: other (distention improved) GI Palp: Yes Soft to palpation, Yes Tenderness to palpation present (GI) (incisional) and No Guarding due to palpation present (GI) Auscultation: normal bowel sounds Other: loop colostomy functioning well with stool in bag, stoma pink and viable with jassi in place Extrem: General: normal to inspection and no edema Objective Data Vital Signs Vital Signs: Vital Signs - 24 hr 06/14/22 11:57 06/14/22 11:57 06/14/22 15:08 Temperature 98.1 F Pulse Rate 76 77 75 Respiratory Rate 18 18 16 Blood Pressure 174/112 H 158/118 H 153/97 H Pulse Oximetry 99 99 98 Oxygen Delivery Room Air Oxygen Flow Rate 06/14/22 17:38 06/14/22 17:50 06/14/22 18:05 Temperature 96.9 F L Pulse Rate 78 76 93 Respiratory Rate 10 L 16 15 Blood Pressure 124/55 L 155/87 H 147/86 H Pulse Oximetry 99 100 96 Oxygen Delivery Simple Face Mask Simple Face Mask Room Air Oxygen Flow Rate 8 8 06/14/22 18:20 06/14/22 18:40 06/14/22 18:55 Temperature 97.0 F L 97.2 F L Pulse Rate 83 84 80 Respiratory Rate 20 16 16 Blood Pressure 142/87 H 144/82 H 146/90 H Pulse Oximetry 98 100 100 Oxygen Delivery Room Air Oxygen Flow Rate 06/14/22 19:24 06/14/22 20:00 06/15/22 04:08 Temperature 97.1 F L 97.1 F L Pulse Rate 75 72 Respiratory Rate 18 18 Blood Pressure 131/92 H 155/95 H Pulse Oximetry 96 100 Oxygen Delivery Room Air Oxygen Flow Rate 06/15/22 09:05 Temperature Pulse Rate Respiratory Rate Blood Pressure Pulse Oximetry Oxygen Delivery Room Air Oxygen Flow Rate Intake/Output Intake/Output: Intake &
[2022-06-15] MEDS: HYDROcodone/acetaminophen (*CRX) 7.5-325 MG TABLET 1 TAB PO (11:47)
--- NOTE | 2022-06-15 13:55 | PM.IMPN ---
Progress Note: A&P Assessment and Plan (1) Mass of colon: Code(s): K63.89 - Other specified diseases of intestine Status: Acute Assessment and Plan: Patient with family history of colon cancer in paternal grandmother presented with abdominal pain and constipation ongoing for [address] scan shows concentric thickening of the descending colon suspicious for adenocarcinoma. CEA level elevated at 652 S/p diverting loop colostomy on 06/14/2022. patient tolerated procedure well Full liquid diet. Advance diet as tolerated per General surgery recommendations Pathology results are pending She has been seen in consultation by Oncology who anticipates initiation of chemotherapy after confirmatory diagnosis. Port placed on 06/14/22 Appreciate General surgery, GI and Oncology consultation Supportive care. Analgesics available as needed (2) Liver masses: Code(s): R16.0 - Hepatomegaly, not elsewhere classified Status: Acute Assessment and Plan: Multiple masses noted in the liver with the largest measuring 7.2 x 5.1 centimeters concerning for metastatic disease. Underwent liver biopsy on 06/14, pathology report is pending See plan above (3) Hypertension: Code(s): I10 - Essential (primary) hypertension Status: Acute Assessment and Plan: Blood pressures have been elevated above target, likely due to pain and anxiety. They have improved postoperatively. Last BP 155/95 prior to administration of antihypertensives. Continue losartan and hydrochlorothiazide Monitor BP trends closely and adjust medication regimen as needed (4) Large bowel obstruction: Code(s): K56.609 - Unspecified intestinal obstruction, unspecified as to partial versus complete obstruction Status: Acute Assessment and Plan: Resolved after decompression colostomy (5) Anxiety: Code(s): F41.9 - Anxiety disorder, unspecified Status: Inactive Assessment and Plan: Acutely worsened due to above issues Anxiolytics as needed Subjective Date/time seen: 06/15/22 13:55 Interval history: date of service: 06/15/2022 Bayron White is a 41-year-old female with a history of plaque psoriasis, psoriatic arthritis, anxiety, and hypertension who is seen in follow-up for metastatic colon cancer s/p open loop transverse colostomy. she is doing well today. She is in very good spirits. She has some abdominal soreness at the site of her incisions and does endorse some mild abdominal bloating. She also complains of low back pain/pressure. She is tolerating clear liquids. No bowel movements in no passage of flatus. Denies any urinary symptoms. Denies nausea, vomiting, fever, or chills. She has no additional concerns at this time. Review of Systems Review of Systems: All systems reviewed & are unremarkable except as noted in HPI and below Exam Narrative: General: Well-nourished, well-appearing 41-year-old female, sitting up in bed, comfortable, NARD Neuro: awake, alert and oriented x4, speech clear, no focal neuro deficits noted HEENMT: normocephalic, atraumatic, EOMI, sclerae anicteric Respiratory: clear to auscultation bilaterally, nonlabored breathing Cardio: regular rate, regular rhythm with S1-S2 Abdomen: bloated, hypoactive bowel sounds, colostomy in place with liquid brown stool, nontender to palpation Extremities: no edema, erythema, or tenderness to palpation, DP pulses 2+ bilaterally Skin: no rashes or lesions, warm and dry Psych: appropriate mood and affect, judgment and insight intact Objective Data Vital Signs Vital Signs: Vital Signs - 24 hr 06/14/22 15:08 06/14/22 17:38 06/14/22 17:50 Temperature 98.1 F 96.9 F L Pulse Rate 75 78 76 Respiratory Rate 16 10 L 16 Blood Pressure 153/97 H 124/55 L 155/87 H Pulse Oximetry 98 99 100 Oxygen Delivery Room Air Simple Face Mask Simple Face Mask Oxygen Flow Rate 8 8 06/14/22 18:05 06/14
[2022-06-15 14:15] VITALS: BP 154/90; PULSE 91; RESP 16; TEMP 37; O2SAT 100
[2022-06-15 19:30] VITALS: BP 155/96; PULSE 108; RESP 18; TEMP 36.4; O2SAT 99
[2022-06-15 23:18] VITALS: BP 142/78; PULSE 114; RESP 18; TEMP 37.2; O2SAT 98
[2022-06-16] MEDS: HYDROcodone/acetaminophen (*CRX) 7.5-325 MG TABLET 1 TAB PO (03:11)
[2022-06-16 03:15] VITALS: BP 125/80; PULSE 110; RESP 20; TEMP 37.2; O2SAT 98
[2022-06-16 06:02] LABS: Hematocrit 39.2 % (37.0-47.0); Hemoglobin 12.6 g/dL (12.0-15.0); Mean Corpuscular HGB Conc 32.1 g/dl (32-36); Mean Corpuscular Hemoglobin 29.4 pg (26-34); Mean Corpuscular Volume 91.4 fl (80-100); Mean Platelet Volume 9.6 fl (7.4-10.4); Platelet Count Result 259 k/mm3 (150-375); Red Blood Count 4.29 M/mm3 (4.2-5.4); Red Cell Distribution Width 13.1 % (11.5-14.5); White Blood Count 12.1 K/mm3 (4.5-10.0)
[2022-06-16 06:30] LABS: Anion Gap 9 mmol/L (8-16); Blood Urea Nitrogen 8 mg/dL (7-17); Calcium 8.7 mg/dL (8.4-10.2); Carbon Dioxide 29 mmol/L (22-30); Chloride 98 mmol/L (98-107); Estimated CRCL calculation 71 ml/min; Estimated Glomerular Filt Rate > 60; Glucose 112 mg/dL (65-110); Potassium 3.5 mmol/L (3.4-5.0); Sodium 136 mmol/L (137-145)
[2022-06-16] MEDS: DULoxetine HCL 60 MG CAPSULE.DR PO (09:27)
[2022-06-16] MEDS: hydroCHLOROthiazide 12.5 MG CAPSULE PO (09:27)
[2022-06-16] MEDS: LOSARTAN POTASSIUM 100 MG TABLET PO (09:28)
[2022-06-16] MEDS: HYDROcodone/acetaminophen (*CRX) 5-325 MG TABLET 1 TAB PO ×2 (09:30→18:39)
--- NOTE | 2022-06-16 12:10 | PM.PNGS ---
Progress Note: A&P Assessment and Plan (1) Mass of colon: Code(s): K63.89 - Other specified diseases of intestine Status: Acute Assessment and Plan: S/p diverting loop colostomy on 06/14. Ostomy functioning well. Advance to low fiber diet Discussed liver biopsy results with patient, consistent with metastatic carcinoma colon primary (2) Large bowel obstruction: Code(s): K56.609 - Unspecified intestinal obstruction, unspecified as to partial versus complete obstruction Status: Acute Assessment and Plan: Resolved. Now with diverting colostomy, which is functioning well. Advance to solids (3) Liver masses: Code(s): R16.0 - Hepatomegaly, not elsewhere classified Status: Acute Assessment and Plan: Liver biopsy on 06/14 showing metastatic carcinoma, c/w colon primary. CEA 652. S/p port placement. Oncology plans to start chemotherapy after she has healed from surgery. 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 Griffin. Subjective Subjective Date/Time Seen: 06/16/22 11:40 Post Op day: 2 Patient reports: no new complaints, feels better, tolerating liquids well (full liquids) and afebrile Interval history: Patient continues to improve. She feels her bloating is even better today. She reports having some upper abdominal pain near the colostomy and under her ribs that feels like soreness that she believes is from the incision. No nausea or vomiting. Ostomy functioning well with 250 cc out this morning already since 9:00 am. Review of Systems Review of Systems: All systems reviewed & are unremarkable except as noted in HPI and below Exam Const: General: comfortable, no acute distress and awake Orientation/consciousness: patient oriented x3 GI: Inspection: non-distended GI Palp: Yes Soft to palpation, Yes Tenderness to palpation present (GI) (very mild TTP near colostomy), No Guarding due to palpation present (GI) and No Rebound tenderness present Auscultation: normal bowel sounds Other: colostomy functioning well with stool in bag, stoma pink and viable with jassi in place Extrem: General: normal to inspection, no calf tenderness and no edema Psych: Mental Status: mental status grossly normal Insight: Good insight present (Psych) Objective Data Vital Signs Vital Signs: Vital Signs - 24 hr 06/15/22 14:15 06/15/22 19:30 06/15/22 20:00 Temperature 98.6 F 97.6 F Pulse Rate 91 108 H Respiratory Rate 16 18 Blood Pressure 154/90 H 155/96 H Pulse Oximetry 100 99 Oxygen Delivery Room Air 06/15/22 23:18 06/16/22 03:15 06/16/22 09:30 Temperature 99 F 98.9 F Pulse Rate 114 H 110 H Respiratory Rate 18 20 Blood Pressure 142/78 H 125/80 Pulse Oximetry 98 98 Oxygen Delivery Room Air Intake/Output Intake/Output: Intake & Output 06/13/22 06/14/22 06/15/22 06/16/22 23:59 23:59 23:59 23:59 Intake Total 8456 368 5150 940 Output Total 1700 754 650 200 Balance -100 -214 1360 740 Meds/Results Medications: Active Medications Generic Name Dose Route Start Last Admin Trade Name Freq PRN Reason Stop Dose Admin Acetaminophen 650 mg 06/12/22 23:48 06/13/22 09:07 Acetaminophen 325 Mg Tablet PO 650 mg Q6H PRN Administration Mild Pain (1-3) or Fever Hydrocodone Bitart/Acetaminophen 1 tab 06/15/22 10:46 06/16/22 09:30 Hydrocodone/Acetaminophen (*Crx) 5-325 Mg Tablet PO 1 tab Q4H PRN Administration Pain Rated 4-6 Hydrocodone Bitart/Acetaminophen 1 tab 06/15/22 10:46 06/16/22 03:11 Hydrocodone/Acetaminoph
[2022-06-16 14:00] VITALS: BP 139/85; PULSE 100; RESP 16; TEMP 36.7; O2SAT 100
--- NOTE | 2022-06-16 16:17 | PM.IMPN ---
Progress Note: A&P Assessment and Plan (1) Mass of colon: Code(s): K63.89 - Other specified diseases of intestine Status: Acute Assessment and Plan: Patient with family history of colon cancer in paternal grandmother presented with abdominal pain and constipation ongoing for [address] scan showed concentric thickening of the descending colon suspicious for adenocarcinoma. CEA level elevated at 652 S/p diverting loop colostomy on 06/14/2022. patient tolerated procedure well Advanced to low-fiber diet today per surgical recommendation She has been seen in consultation by Oncology who anticipates initiation of chemotherapy. Port placed on 06/14/22 Appreciate General surgery, GI and Oncology consultation Supportive care. Analgesics available as needed (2) Liver masses: Code(s): R16.0 - Hepatomegaly, not elsewhere classified Status: Acute Assessment and Plan: Multiple masses noted in the liver with the largest measuring 7.2 x 5.1 centimeters concerning for metastatic disease. Underwent liver biopsy on 06/14 Pathology reveals metastatic carcinoma compatible with colon primary. Patient aware See plan above (3) Hypertension: Code(s): I10 - Essential (primary) hypertension Status: Acute Assessment and Plan: Blood pressures have been elevated above target, likely due to pain and anxiety. Improved postoperatively. Last BP 139/85 Continue losartan and hydrochlorothiazide Monitor BP trends closely and adjust medication regimen as needed (4) Large bowel obstruction: Code(s): K56.609 - Unspecified intestinal obstruction, unspecified as to partial versus complete obstruction Status: Acute Assessment and Plan: Resolved after decompression colostomy Subjective Date/time seen: 06/16/22 16:17 Interval history: date of service: 06/16/2022 Bayron White is a 41-year-old female with a history of plaque psoriasis, psoriatic arthritis, anxiety, and hypertension who is seen in follow-up for metastatic colon cancer s/p open loop transverse colostomy. She feels well today. She reports she is more comfortable if she is standing up straight or laying down flat. She has abdominal soreness with movements. No nausea or vomiting. She has been tolerating full liquids today. Denies fever or chills. She has been up and ambulating without difficulty. Her back pain has improved. She has no additional concerns and is in good spirits. Review of Systems Review of Systems: All systems reviewed & are unremarkable except as noted in HPI and below Exam Narrative: General: Well-nourished, well-appearing 41-year-old female, sitting up in bed, comfortable, NARD Neuro: awake, alert and oriented x4, speech clear, no focal neuro deficits noted HEENMT: normocephalic, atraumatic, EOMI, sclerae anicteric Respiratory: clear to auscultation bilaterally, nonlabored breathing Cardio: regular rate, regular rhythm with S1-S2 Abdomen: nondistended, normooactive bowel sounds, colostomy in place with liquid brown stool, nontender to palpation Extremities: no edema, erythema, or tenderness to palpation, DP pulses 2+ bilaterally Skin: no rashes or lesions, warm and dry Psych: appropriate mood and affect, judgment and insight intact Objective Data Vital Signs Vital Signs: Vital Signs - 24 hr 06/15/22 19:30 06/15/22 20:00 06/15/22 23:18 Temperature 97.6 F 99 F Pulse Rate 108 H 114 H Respiratory Rate 18 18 Blood Pressure 155/96 H 142/78 H Pulse Oximetry 99 98 Oxygen Delivery Room Air 06/16/22 03:15 06/16/22 09:30 06/16/22 14:00 Temperature 98.9 F 98.0 F Pulse Rate 110 H 100 Respiratory Rate 20 16 Blood Pressure 125/80 139/85 Pulse Oximetry 98 100 Oxygen Delivery Room Air Intake/Output Intake/Output: Intake & Output 06/13/22 06/14/22 06/15/22 06/16/22 23:59 23:59 23:59 23:59 Intake Total 5060 995 3843 1180 Output Total 1700
[2022-06-16 19:13] VITALS: BP 143/83; PULSE 105; RESP 18; TEMP 37.2; O2SAT 100
[2022-06-17 03:19] VITALS: BP 147/86; PULSE 100; RESP 17; TEMP 36.4; O2SAT 100
[2022-06-17] MEDS: HYDROcodone/acetaminophen (*CRX) 7.5-325 MG TABLET 1 TAB PO (03:19)
[2022-06-17 06:48] LABS: Hematocrit 36.1 % (37.0-47.0); Hemoglobin 11.6 g/dL (12.0-15.0); Mean Corpuscular HGB Conc 32.1 g/dl (32-36); Mean Corpuscular Volume 90.3 fl (80-100); Mean Platelet Volume 9.5 fl (7.4-10.4); Platelet Count Result 213 k/mm3 (150-375); Red Cell Distribution Width 12.6 % (11.5-14.5)
[2022-06-17 07:01] LABS: Anion Gap 9 mmol/L (8-16); Blood Urea Nitrogen 10 mg/dL (7-17); Calcium 8.8 mg/dL (8.4-10.2); Carbon Dioxide 31 mmol/L (22-30); Chloride 96 mmol/L (98-107); Estimated CRCL calculation 91 ml/min; Estimated Glomerular Filt Rate > 60; Glucose 132 mg/dL (65-110); Potassium 3.4 mmol/L (3.4-5.0); Sodium 136 mmol/L (137-145)
--- NOTE | 2022-06-17 07:09 | P.PNIM_ITS ---
Progress Note: A&P Assessment and Plan (1) Mass of colon: Code(s): K63.89 - Other specified diseases of intestine Status: Acute Assessment and Plan: * Known family history of colon cancer in paternal grandmother * presented with abdominal pain and constipation ongoing for 2 days * CT scan showed concentric thickening of the descending colon suspicious for adenocarcinoma. * CEA level elevated at 652 * S/p diverting loop colostomy on 06/14/2022 * Tolerating ostomy * Advanced to low-fiber diet today per surgical recommendation * consultation by Oncology who anticipates initiation of chemotherapy. Port placed on 06/14/22 * Appreciate General surgery, GI and Oncology consultation * Supportive care. Analgesics available as needed (2) Liver masses: Code(s): R16.0 - Hepatomegaly, not elsewhere classified Status: Acute Assessment and Plan: * Multiple masses noted in the liver with the largest measuring 7.2 x 5.1 centimeters concerning for metastatic disease. * Underwent liver biopsy on 06/14 * Pathology reveals metastatic carcinoma compatible with colon primary. Patient aware * See plan above (3) Hypertension: Code(s): I10 - Essential (primary) hypertension Status: Acute Assessment and Plan: * Blood pressures have been elevated above target, likely due to pain and anxiety. Improved postoperatively. Last BP 147/86 * Continue losartan and hydrochlorothiazide * Monitor BP trends closely and adjust medication regimen as needed * Remains stable (4) Large bowel obstruction: Code(s): K56.609 - Unspecified intestinal obstruction, unspecified as to partial versus complete obstruction Status: Acute Assessment and Plan: * Resolved after decompression colostomy * Diet advanced to low fiber Time Spent With Patient Time with patient: Greater than 35 minutes Subjective Date/time seen: 06/17/22 07:09 Interval history: date of service: 06/16/2022 Bayron White is a 41-year-old female with a history of plaque psoriasis, psoriatic arthritis, anxiety, and hypertension who is seen in follow-up for metastatic colon cancer s/p open loop transverse colostomy. She feels well today. She reports she is more comfortable if she is standing up straight or la michael down flat. She has abdominal soreness with movements. No nausea or vomiting. She has been tolerating full liquids today. Denies fever or chills. She has been up and ambulating without difficulty. Her back pain has improved. She has no additional concerns and is in good spirits. Exam Narrative: General: Well-nourished, well-appearing 41-year-old female, sitting up in bed, comfortable, NARD Neuro: awake, alert and oriented x4, speech clear, no focal neuro deficits noted HEENMT: normocephalic, atraumatic, EOMI, sclerae anicteric Respiratory: clear to auscultation bilaterally, nonlabored breathing Cardio: regular rate, regular rhythm with S1-S2 Abdomen: nondistended, normooactive bowel sounds, colostomy in place with liquid brown stool, nontender to palpation Extremities: no edema, erythema, or tenderness to palpation, DP pulses 2+ bilaterally Skin: no rashes or lesions, warm and dry Psych: appropriate mood and affect, judgment and insight intact Objective Data Vital Signs Vital Signs: Vital Signs - 24 hr 06/16/22 09:30
--- NOTE | 2022-06-17 07:09 | PM.IMPN ---
Progress Note: A&P Assessment and Plan (1) Mass of colon: Code(s): K63.89 - Other specified diseases of intestine Status: Acute Assessment and Plan: Known family history of colon cancer in paternal grandmother presented with abdominal pain and constipation ongoing for [address] scan showed concentric thickening of the descending colon suspicious for adenocarcinoma. CEA level elevated at 652 S/p diverting loop colostomy on 06/14/2022 Tolerating ostomy Advanced to low-fiber diet today per surgical recommendation consultation by Oncology who anticipates initiation of chemotherapy. Port placed on 06/14/22 Appreciate General surgery, GI and Oncology consultation Supportive care. Analgesics available as needed (2) Liver masses: Code(s): R16.0 - Hepatomegaly, not elsewhere classified Status: Acute Assessment and Plan: Multiple masses noted in the liver with the largest measuring 7.2 x 5.1 centimeters concerning for metastatic disease. Underwent liver biopsy on 06/14 Pathology reveals metastatic carcinoma compatible with colon primary. Patient aware See plan above (3) Hypertension: Code(s): I10 - Essential (primary) hypertension Status: Acute Assessment and Plan: Blood pressures have been elevated above target, likely due to pain and anxiety. Improved postoperatively. Last BP 147/86 Continue losartan and hydrochlorothiazide Monitor BP trends closely and adjust medication regimen as needed Remains stable (4) Large bowel obstruction: Code(s): K56.609 - Unspecified intestinal obstruction, unspecified as to partial versus complete obstruction Status: Acute Assessment and Plan: Resolved after decompression colostomy Diet advanced to low fiber Time Spent With Patient Time with patient: Greater than 35 minutes Subjective Date/time seen: 06/17/22 07:09 Interval history: date of service: 06/16/2022 Bayron White is a 41-year-old female with a history of plaque psoriasis, psoriatic arthritis, anxiety, and hypertension who is seen in follow-up for metastatic colon cancer s/p open loop transverse colostomy. She feels well today. She reports she is more comfortable if she is standing up straight or laying down flat. She has abdominal soreness with movements. No nausea or vomiting. She has been tolerating full liquids today. Denies fever or chills. She has been up and ambulating without difficulty. Her back pain has improved. She has no additional concerns and is in good spirits. Exam Narrative: General: Well-nourished, well-appearing 41-year-old female, sitting up in bed, comfortable, NARD Neuro: awake, alert and oriented x4, speech clear, no focal neuro deficits noted HEENMT: normocephalic, atraumatic, EOMI, sclerae anicteric Respiratory: clear to auscultation bilaterally, nonlabored breathing Cardio: regular rate, regular rhythm with S1-S2 Abdomen: nondistended, normooactive bowel sounds, colostomy in place with liquid brown stool, nontender to palpation Extremities: no edema, erythema, or tenderness to palpation, DP pulses 2+ bilaterally Skin: no rashes or lesions, warm and dry Psych: appropriate mood and affect, judgment and insight intact Objective Data Vital Signs Vital Signs: Vital Signs - 24 hr 06/16/22 09:30 06/16/22 14:00 06/16/22 19:13 Temperature 98.0 F 98.9 F Pulse Rate 100 105 H Respiratory Rate 16 18 Blood Pressure 139/85 143/83 H Pulse Oximetry 100 100 Oxygen Delivery Room Air 06/16/22 20:00 06/17/22 03:19 Temperature 97.6 F Pulse Rate 100 Respiratory Rate 17 Blood Pressure 147/86 H Pulse Oximetry 100 Oxygen Delivery Room Air Intake/Output Intake/Output: Intake & Output 06/14/22 06/15/22 06/16/22 06/17/22 23:59 23:59 23:59 23:59 Intake Total 540 20090 500 Output Total 755 650 650 Balance -214 1360 2270 5
--- NOTE | 2022-06-17 08:30 | PM.DS ---
DS: Admitting Diagnosis Discharge Date 06/17/22829 Admitting Diagnosis Bowel Obstruction, New carcinoma findings of the liver and colon DS: Discharge Diagnosis Discharge Diagnosis (1) Mass of colon: Code(s): K63.89 - Other specified diseases of intestine Status: Acute Assessment and Plan: Known family history of colon cancer in paternal grandmother presented with abdominal pain and constipation ongoing for [address] scan showed concentric thickening of the descending colon suspicious for adenocarcinoma. CEA level elevated at 652 S/p diverting loop colostomy on 06/14/2022 Tolerating ostomy Advanced to low-fiber diet today per surgical recommendation consultation by Oncology who anticipates initiation of chemotherapy. Port placed on 06/14/22 Appreciate General surgery, GI and Oncology consultation Supportive care. Analgesics available as needed (2) Liver masses: Code(s): R16.0 - Hepatomegaly, not elsewhere classified Status: Acute Assessment and Plan: Multiple masses noted in the liver with the largest measuring 7.2 x 5.1 centimeters concerning for metastatic disease. Underwent liver biopsy on 06/14 Pathology reveals metastatic carcinoma compatible with colon primary. Patient aware See plan above (3) Hypertension: Code(s): I10 - Essential (primary) hypertension Status: Acute Assessment and Plan: Blood pressures have been elevated above target, likely due to pain and anxiety. Improved postoperatively. Last BP 147/86 Continue losartan and hydrochlorothiazide Monitor BP trends closely and adjust medication regimen as needed Remains stable (4) Large bowel obstruction: Code(s): K56.609 - Unspecified intestinal obstruction, unspecified as to partial versus complete obstruction Status: Acute Assessment and Plan: Resolved after decompression colostomy Diet advanced to low fiber DS: Summary Hospital Course Hospital Course: Patient is is a 41 year old female with a past medication of depression who presented to the hospital for abdominal pain. Upon arrival per CT scan it was noted that the patient did have thickening of the descending colon suspicious for adenocarcinoma. It also showed that she had suspicious spots in the liver. Patient was also noted to have a bowel obstruction. Biopsy of the liver and the colon were performed and did show patient is positive for a dental carcinoma. General surgery had been consulted and did do a bowel resection with a colostomy placement. Port had been placed on 06/14/2022. GI was consulted and was planning on doing a colonoscopy however was unable due to the bowel obstruction. Blood pressure was noted to be elevated upon arrival however most likely related to pain, obstruction, anxiety. Patient has been doing really well and diet has been advanced to a regular diet. Colostomy does have stool production. Port also appears to be stable all sites do not appear to be infectious with no redness, swelling, oozing. Patient seems to be in good spirits and denies any chest pain, shortness a breath, nausea, vomiting, diarrhea, constipation, weakness or fatigue. She was seen by Oncology who will have the patient follow-up. General surgery is also involved as they did the bowel resection. Patient has been up walking around standing doing well with that. Blood pressure is currently controlled at 147/86. She seems to be doing really well and is ready to go. Patient will need to follow up accordingly. Labs and vital signs remained stable today. Status at Discharge Functional status at discharge: independent ambulation Overall status at discharge: patient is progressing back to baseline Time Spent with Patient Time attestation: Total time spent providing and/or coordinating discharge services: 37 minutes Time spent: Greater than 30 minutes Exam Const: Yoly
[2022-06-17] MEDS: LOSARTAN POTASSIUM 100 MG TABLET PO (08:34)
[2022-06-17] MEDS: hydroCHLOROthiazide 12.5 MG CAPSULE PO (08:34)
[2022-06-17] MEDS: DULoxetine HCL 60 MG CAPSULE.DR PO (08:34)
[2022-06-17] MEDS: HYDROcodone/acetaminophen (*CRX) 5-325 MG TABLET 1 TAB PO (08:42)
[2022-06-17 08:44] VITALS: O2SAT 97
[2022-06-17 10:06] VITALS: O2SAT 99
--- NOTE | 2022-06-17 11:44 | PM.PNGS ---
Progress Note: A&P Assessment and Plan (1) Mass of colon: Code(s): K63.89 - Other specified diseases of intestine Status: Acute Assessment and Plan: S/p diverting loop colostomy on 06/14. Ostomy functioning well. Discharge today, will have patient follow up next week to assess ostomy (2) Large bowel obstruction: Code(s): K56.609 - Unspecified intestinal obstruction, unspecified as to partial versus complete obstruction Status: Acute Assessment and Plan: Resolved. Now with diverting colostomy, which is functioning well. (3) Liver masses: Code(s): R16.0 - Hepatomegaly, not elsewhere classified Status: Acute Assessment and Plan: Liver biopsy on 06/14 showing metastatic carcinoma, c/w colon primary. CEA 652. S/p port placement. Oncology plans to start chemotherapy after she has healed from surgery. 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 Tolerating diet. Still having some leaking around ostomy. Ostomy appliance has been changed multiple times over the past several days. Exam GI: Inspection: other (Ostomy patent and functioning) Other: T-jassi removed from ostomy and red rubber catheter placed to help prevent skin irritation and appliance problems. Objective Data Vital Signs Vital Signs: Vital Signs - 24 hr 06/16/22 14:00 06/16/22 19:13 06/16/22 20:00 Temperature 36.7 C 37.2 C Pulse Rate 100 105 H Respiratory Rate 16 18 Blood Pressure 139/85 143/83 H Pulse Oximetry 100 100 Oxygen Delivery Room Air 06/17/22 03:19 06/17/22 08:44 06/17/22 10:06 Temperature 36.4 C Pulse Rate 100 Respiratory Rate 17 Blood Pressure 147/86 H Pulse Oximetry 100 97 99 Oxygen Delivery Room Air Room Air Intake/Output Intake/Output: Intake & Output 10/07/2606/15/22 06/16/22 06/17/22 23:59 23:59 23:59 23:59 Intake Total 540 2009 5120 740 Output Total 753 289 664 Balance -214 1360 9060 740 Meds/Results Medications: Active Medications Generic Name Dose Route Start Last Admin Trade Name Freq PRN Reason Stop Dose Admin Acetaminophen 650 mg 06/12/22 23:48 06/13/22 09:07 Acetaminophen 325 Mg Tablet PO 650 mg Q6H PRN Administration Mild Pain (1-3) or Fever Hydrocodone Bitart/Acetaminophen 1 tab 06/15/22 10:46 06/17/22 08:42 Hydrocodone/Acetaminophen (*Crx) 5-325 Mg Tablet PO 1 tab Q4H PRN Administration Pain Rated 4-6 Hydrocodone Bitart/Acetaminophen 1 tab 06/15/22 10:46 06/17/22 03:19 Hydrocodone/Acetaminophen (*Crx) 7.5-325 Mg Tablet PO 1 tab Q4H PRN Administration Pain Rated 7-10 Duloxetine HCl 60 mg 06/13/22 09:00 06/17/22 08:34 Duloxetine Hcl 60 Mg Capsule.Dr PO 60 mg DAILY NANCY Administration Enoxaparin Sodium 40 mg 06/15/22 09:00 06/17/22 08:34 Enoxaparin 40 Mg/0.4 Ml Syringe SUB-Q Not Given DAILY NANCY Hydrochlorothiazide 12.5 mg 06/13/22 13:45 06/17/22 08:34 Hydrochlorothiazide 12.5 Mg Capsule PO 12.5 mg QAM NANCY Administration Hydromorphone HCl 0.5 mg 06/14/22 18:29 06/14/22 19:24 Hydromorphone Hcl Inj (*Crx) 1 Mg/Ml Syr IV PUSH 0.5 mg Q2H PRN Administration Pain Rated 4-6 Hydromorphone HCl 1 mg 06/14/22 18:29 06/15/22 20:27 Hydromorphone Hcl Inj (*Crx) 1 Mg/Ml Syr IV PUSH 1 mg Q2H PRN Administration Pain Rated 7-10 Lorazepam 0.5 mg 06/14/22 09:04 06/14/22 10:43 Lorazepam (*Crx) 0.5 Mg Tablet PO 0.5 mg Q6H PRN Administration Anxiety Losartan Potassium 100 mg 06/14/22 09:00
== END 2022-06-17 12:48 | disposition home health service (06) | DRG 330 ==
LOC: ANHED 14:32 → ANH2MED 15:15
PROVIDERS: Internal Medicine Gastroenterology; Internal Medicine Hematology & Oncology; Nurse Practitioner Family; Physician Assistant; Surgery; Admitting Provider Chiropractor; Emergency Provider Emergency Medicine; PCP Nurse Practitioner Adult Health; Visit Provider Nurse Practitioner
PROC: 0D1L0Z4 Bypass Transverse Colon to Cutaneous, Open Approach (ICD-10-PCS; principal; 2022-06-14 15:30)
PROC: 0D1L0Z4 Bypass Transverse Colon to Cutaneous, Open Approach (ICD-10-PCS; CPT 44320; 2022-06-14 15:30)
DX: C18.9 Malignant neoplasm of colon, unspecified (principal); C78.7 Secondary malignant neoplasm of liver and intrahepatic bile duct; D84.821 Immunodeficiency due to drugs; I10 Essential (primary) hypertension; F41.9 Anxiety disorder, unspecified; L40.0 Psoriasis vulgaris; L40.50 Arthropathic psoriasis, unspecified; Z79.899 Other long term (current) drug therapy; Z87.891 Personal history of nicotine dependence; Z80.0 Family history of malignant neoplasm of digestive organs; Z80.8 Family history of malignant neoplasm of other organs or systems
CPT/HCPCS: 36415; 47000; 74019; 74177; 76942; 77001; 80048; 80053; 81001; 81025; 82378; 83605; 83690; 83735; 85025; 85027; 85610; 85730; 86850; 86900; 86901; 88307; 88342; 96361; 96374; 96375; 96376; 99285; A9270; C1788; C9803; G0378; J0330; J0360; J0690; J1100; J1170; J1644; J1650; J1885; J2250; J2270; J2370; J2405; J2704; J2710; J3010; J7030; J7120; Q9967; U0003; U0005

== ENCOUNTER 2022-06-22 10:59 | Outpatient (CLI) | payer OTHER, SELFPAY ==
--- NOTE | ~2022-06-22 | CT_ITS ---
EXAMINATION: CT diagnostic chest w con DATE: 06/22/2022 12:10 INDICATION: Metastatic colon cancer TECHNIQUE: Transaxial computed tomographic images of the chest were obtained after the administration of 75 cc of Omnipaque 350 intravenous contrast. The dose-length product (DLP) was 167.54 mGy-cm. Ite rative reconstruction was used. COMPARISON: 06/12/2022 FINDINGS: There is a 4 mm nodule of the right upper lobe on image 46. There is a 5 mm nodule of the l eft lower lobe on image 81. There is a 4 mm nodule in the left upper lobe on image 59. A left interna l jugular Port-A-Cath ends with its tip in the proximal superior vena cava. No pathologically enlarge d thoracic lymph nodes are identified. The heart size is normal. There is a small right pleural effus ion. No pneumothorax is identified. Again noted are multiple masses of the liver. There is moderate t horacic spondylosis. A loop colostomy is noted in the upper abdomen. IMPRESSION: 1. Indeterminate pulmonary nodules as described above measuring up to 5 mm. Reviewed, dictated and finalized at location A.
== END 2022-06-22 11:00 | disposition home or self-care (01) ==
PROVIDERS: PCP Nurse Practitioner Adult Health; Visit Provider Internal Medicine Hematology & Oncology
DX: C18.9 Malignant neoplasm of colon, unspecified (principal); R91.8 Other nonspecific abnormal finding of lung field
CPT/HCPCS: 71260; Q9967

== ENCOUNTER 2022-07-06 14:01 | Outpatient (CLI) | payer OTHER, SELFPAY ==
--- NOTE | ~2022-07-06 | CT_ITS ---
EXAMINATION: CTA chest PE protocol DATE: 07/06/2022 14:31 INDICATION: Shortness of breath. TECHNIQUE: Computed tomography angiography (CTA) of the chest was performed with 100 mL Omnipaque-350 intravenous contrast timed to evaluate the pulmonary arteries. Coronal maximum intensity projection 3D-reconstructions were created by the technologist. Automated exposure control and iterative reconst ruction technique were employed. The dose-length product was 347.86 mGy-cm. COMPARISON: Chest CT 06/22/2022, CT abdomen and pelvis 06/12/22 FINDINGS: There is mild dependent atelectasis bilaterally. There is a 4 mm nodule in right upper lobe . There is a 7 mm nodule in left lower lobe. There are two 5 mm nodules in left upper lobe. No pleura l effusion. The heart size is normal. There is no pulmonary embolus. Again seen are multiple hypodens e masses in the liver. Partially visualized is an ostomy. There is a left internal jugular central ve nous catheter with tip at superior cavoatrial junction. There is mild chronic height loss of multiple vertebral bodies. There is mild thoracic spondylosis. IMPRESSION: 1. No pulmonary embolus. 2. Liver masses again noted, consistent with metastatic disease. 3. Pulmonary nodules measuring up to 7 mm, likely metastatic disease. Reviewed, dictated and finalized at location A.
== END 2022-07-06 14:02 | disposition home or self-care (01) ==
LOC: ANHIMG 14:04
PROVIDERS: PCP Nurse Practitioner Adult Health; Visit Provider Internal Medicine Hematology & Oncology
DX: R06.02 Shortness of breath (principal); R91.8 Other nonspecific abnormal finding of lung field
CPT/HCPCS: 71275; 99212; G0463; Q9967

== ENCOUNTER 2022-10-06 08:34 | Outpatient (CLI) | payer OTHER, SELFPAY ==
--- NOTE | ~2022-10-06 | CT_ITS ---
EXAMINATION: CT chest abdomen pelvis w con DATE: 10/06/2022 09:10 INDICATION: Metastatic colorectal cancer TECHNIQUE: Transaxial computed tomographic images of the chest, abdomen, and pelvis were obtained aft er the administration of 100 cc of Omnipaque 350 intravenous contrast. The dose-length product (DLP) was 745.57 mGy-cm. Automated exposure control and iterative reconstruction technique were employed. COMPARISON: 07/06/2022, 06/12/2022 FINDINGS: CHEST CT: A left internal jugular Port-A-Cath ends with its tip in the superior vena cava. Previously described lung nodules have decreased in size. For instance, a 3 mm nodule in the left lower lobe previously m easured 7 mm. No new pulmonary nodules are identified. The lungs are free of acute opacities. There i s mild dependent atelectasis. No pathologically enlarged thoracic lymph nodes are identified. The hea rt size is normal. There is mild thoracic spondylosis. ABDOMEN/PELVIS CT: There are multiple hypoattenuating masses of the liver, consistent with metastatic disease. Some are stable in size, some have increased in size, and others demonstrate slight decrease in size. For inst ance, a 5.4 x 5.2 cm mass in liver segment II previously measured 7.2 x 5.1 cm. A 2.9 x 2.1 cm mass o f liver segment of the caudal tip of the right hepatic lobe previously measured 2.5 x 2.4 cm. The spleen, pancreas, gallbladder, and adrenal glands are normal. The kidneys are unremarkable. There is a loop colostomy of the anterior abdominal wall. An IUD is present in expected position. No pathologi anusha enlarged abdominal or pelvic lymph nodes are identified. No free intraperitoneal gas or evidenc e of bowel obstruction. The appendix is normal. There is mild lumbar spondylosis. IMPRESSION: 1. Decrease in size of previously described pulmonary nodules. Mixed treatment response in the liver evidenced by some metastases stable in size, some increased in size, and others decreased in size. Reviewed, dictated and finalized at location L. D EXAMINER IMPRESSION: 1. Decrease in size of previously described pulmonary nodules. Mixed treatment response in the liver evidenced by some metastases stable in size, some increas ed in size, and others decreased in size.
== END 2022-10-06 08:35 | disposition home or self-care (01) ==
PROVIDERS: PCP Nurse Practitioner Adult Health; Visit Provider Internal Medicine Hematology & Oncology
DX: C19 Malignant neoplasm of rectosigmoid junction (principal)
CPT/HCPCS: 71260; 74177; Q9967

== ENCOUNTER 2023-01-02 13:35 | Outpatient (CLI) | payer OTHER, SELFPAY ==
--- NOTE | ~2023-01-02 | CT_ITS ---
Clinical Indication: Colon cancer CT Scan of the Chest, Abdomen, and Pelvis with Contrast: Technique: Contiguous sections were acquired throughout the chest, abdomen, and pelvis after intraven ous administration of 100 cc of Omnipaque 350. Dose reduction technique was used on this scan by anika solitarioing automated exposure control and iterative reconstruction technique. The dose-length product (DL P) was 742.17 mGy-cm. COMPARISON: 10/06/2022 Findings: There is no evidence of any significant mediastinal, hilar or axillary lymphadenopathy. The mediastin al soft tissues appear normal. There is no evidence of pleural or pericardial effusion. The lungs are clear. No pulmonary nodules or infiltrates are noted. Numerous hypodense hepatic metastases are again present, essentially stable in distribution from prio r exam, with suspected minimal decrease in size of several lesions. The spleen, pancreas, gallbladder , adrenals and kidneys are within normal limits. No evidence of aortic aneurysm. No lymphadenopathy . No bowel obstruction identified. Double barrel ostomy present in the midline. Urinary bladder is unremarkable. IUD in place. No adnexal mass evident. No ascites. Impression: Fairly extensive hepatic metastatic disease, essentially stable in distribution, with probable minima l decrease in size of several lesions. This is consistent with mild partial response to therapy. Stable ostomy related to presumed prior colonic resection. Reviewed, dictated and finalized at location . Impression: Fairly extensive hepatic metastatic disease, essentially stable in distribution , with probable minimal decrease in size of several lesions. This is consistent with mild partial response to therapy. Stable ostomy related to presumed prior colonic resection.
== END 2023-01-02 13:36 | disposition home or self-care (01) ==
PROVIDERS: PCP Family Medicine; Visit Provider Internal Medicine Hematology & Oncology
DX: C19 Malignant neoplasm of rectosigmoid junction (principal)
CPT/HCPCS: 71260; 74177; Q9967